=== PATIENT | male | born 1945 | race Caucasian/White ===

== ENCOUNTER 2020-11-10 12:16 | Inpatient (IN) | payer MEDICARE, MEDICAID, SELFPAY ==
[~2020-11-10] VITALS: Ht 175.3 cm; Wt 81.2 kg
[2020-11-10 12:16] VITALS: BP 131/65
[~2020-11-10 12:16] MED LIST: ALBU-136 IH; LEVO500T6 PO; PRED20TA5 PO; PRON INH
--- NOTE | 2020-11-10 12:16 | NUR ---
PT W/C ASSISTED FROM CAR. BIB FAMILY AND PLACED IN BED 10.
--- NOTE | 2020-11-10 12:17 | NUR ---
ERMD at bedside
[2020-11-10] MEDS ORDERED: predniSONE 20 MG TAB PO ONE (12:20)
[2020-11-10] MEDS ORDERED: ALBUTEROL SULFATE/IPRATROPIU 3 ML SOL IH ONE (12:20)
[2020-11-10] MEDS ORDERED: ALBUTEROL 0.083% 2.5 MG/3 ML NEBU INH ONE (12:20)
--- NOTE | 2020-11-10 12:20 | NUR ---
RT CALLED FOR BREATHING TX.
--- NOTE | 2020-11-10 12:23 | NUR ---
RT AT BEDSIDE PROVIDING BREATHING TREATMENT
--- NOTE | 2020-11-10 12:24 | NUR ---
RT AT BEDSIDE FOR BREATHING INTERVENTION.
--- NOTE | 2020-11-10 12:25 | NUR ---
75 Y/O M BIB SELF WITH A C/C OF SHORTNESS OF BREATH X 3 DAYS. PT STATES THAT HIS SOB WORSEN THIS MORNING. PT STATES HE TOOK HIS PRESCRIBED MEDICATION, ADVAIR, PROAIR INHALER, AND ALLERGY MEDICATION AT 12PM WITH RELIEF. PT PRESENTED TO ER WITH O2 SATURATION 85%. O2 SATURATION 94% AFTER PT PT PLACED ON NASAL CANNULA @ 3L/MIN. PT DENIES FEVER, NAUSEA, VOMITING, CHEST PAIN, DIZZINESS. ORAL TEMP 97.7. LUNG SOUNDS DIMINISHED BILATERAL BASES. RESEARCH PROGRAM COORDINATOR, BP CUFF, PULSE OX IN PLACE. BED LOCKED IN LOWEST POSITION, SIDE RAILS X 1, CALL LIGHT IN REACH HX: ASTHMA MEDS: ADVAIR DISKUS, PROAIR INHALER, ALLERGY MEDICATION UNKNOWN NKA
--- NOTE | 2020-11-10 12:37 | NUR ---
RAD AT BEDSIDE
--- NOTE | 2020-11-10 12:50 | NUR ---
DR. PRIEST EXAMINING PT AT BEDSIDE
--- NOTE | 2020-11-10 13:15 | NUR ---
STATUS UPDATE PROVIDED TO ROGERIO () VIA PHONE
--- NOTE | 2020-11-10 13:30 | NUR ---
chris/novel swabs collected and taken to lab
--- NOTE | 2020-11-10 14:26 | NUR ---
LAB CALLED TO INFORM THAT PT IS COVID+
--- NOTE | 2020-11-10 14:28 | NUR ---
SELWYND MADE AWARE OF POSITIVE COVID TEST
--- NOTE | 2020-11-10 14:46 | NUR ---
ERMD MADE AWARE OF PT O2 SATURATION OF 88% ON ROOM AIR AND CONFIRMED TO CONTINUE DISCHARGE PLAN
--- NOTE | 2020-11-10 14:53 | NUR ---
consent obtained for Bamlanivimab transfusion
[2020-11-10] MEDS ORDERED: bamlanivimab 700 MG (1 VIAL) in NACL 0.9% @ 270 MLS/HR(270ml) IV SCH (15:00)
[2020-11-10] MEDS ORDERED: AZITHROMYCIN 500 MG in DEXTROSE 5% 250 ML IV ONE (15:50)
[2020-11-10] MEDS ORDERED: DEXAMETHASONE 10 MG/ML VIAL IVP ONE (15:50)
[2020-11-10] MEDS ORDERED: FLUT1DSK IH (15:52)
[2020-11-10] MEDS ORDERED: PRED5TAB7 PO (15:53)
--- NOTE | 2020-11-10 15:57 | NUR ---
GAVE UPDATE TO SENIA () OF PT.
[2020-11-10] MEDS ORDERED: cefTRIAXone 1,000 MG VIAL ONE (16:00)
--- NOTE | 2020-11-10 16:05 | NUR ---
LAB AT BEDSIDE
[2020-11-10 16:25] LABS: BASOPHILS % (AUTO) 0.4 % (0.0-2.0); HEMATOCRIT 43.6 % (36-52); HEMOGLOBIN 14.7 g/dL (12.0-18.0); LYMPHOCYTES # (AUTO) 0.4 K/uL (2.0-11.5); LYMPHOCYTES % (AUTO) 3.4 % (20.5-51.1); MEAN CORPUSCULAR HEMOGLOBIN 32 pg (27-31); MEAN CORPUSCULAR HGB CONC 34 g/dL (33-37); MEAN CORPUSCULAR VOLUME 94.5 fL (80-94); MONOCYTES # (AUTO) 0.5 K/uL (0.8-1.0); MONOCYTES % (AUTO) 4.9 % (1.7-9.3); NEUTROPHILS # (AUTO) 9.9 K/uL (1.8-7.7); NEUTROPHILS % (AUTO) 91.3 % (42.2-75.2); PLATELET COUNT (AUTO) 286 K/uL (140-450); RED BLOOD CELL COUNT(AUTO) 4.61 MIL/uL (4.20-6.10); WHITE BLOOD COUNT (AUTO) 10.8 K/uL (4.8-10.8)
[2020-11-10] MEDS ORDERED: AZITHROMYCIN 500 MG INJ VIAL IV ONE (16:30)
[2020-11-10 16:43] LABS: ALBUMIN 3.1 g/dL (3.4-5.0); ANION GAP 14.2 (8-16); ASPARTATE AMINOTRANSFERASE 50 U/L (15-37); CARBON DIOXIDE 25.9 mmol/L (21-32); CHLORIDE 103 mmol/L (98-107); CREATININE 1.3 mg/dL (0.6-1.3); GLUCOSE 164 mg/dL (74-106); POTASSIUM 4.1 mmol/L (3.5-5.1); SODIUM SERUM 139 mmol/L (136-145); TOTAL BILIRUBIN 0.6 mg/dL (0.0-1.0); UREA NITROGEN, BLOOD 24 mg/dL (7-18)
[2020-11-10 17:07] LABS: C-REACTIVE PROTEIN QUANT 9.8 mg/dL (0.0-0.9)
--- NOTE | 2020-11-10 17:10 | NUR ---
PT RESTING AT THIS TIME AND REQUESTED TO HAVE LIGHTS TURNED OFF. EQUAL CHEST RISE AND FALL. TANK CALIBRATOR IN PLACE. BED LOCKED IN LOWEST POSITION, SIDE RAILS X2, CALL LIGHT IN REACH
[2020-11-10 17:13] LABS: LACTATE DEHYDROGENASE 431 U/L (85-227)
--- NOTE | 2020-11-10 18:00 | NUR ---
PT ASSISTED WITH REPOSITIONING IN BED. PT PROVIDED WITH SCALLOP BINDER FOR PHONE. ALL PT NEEDS MET AT THIS TIME. TEAR DOWN WORKER IN PLACE. EQUAL CHEST RISE AND FALL. BED LOCKED IN LOWEST POSITION, SIDE RAILS X 2, CALL LIGHT IN REACH
--- NOTE | 2020-11-10 18:53 | NUR ---
PT PROVIDED WITH DINNER MEAL TRAY. ALL PT NEEDS MET. BED LOCKED IN LOWEST POSITION, SIDE RAILS X 1, CALL LIGHT IN REACH
--- NOTE | 2020-11-10 19:26 | NUR ---
PT COMPLETED 80% OF DINNER MEAL TRAY. MEAL TRAY DISCARDED. ALL PT NEEDS MET AT THIS TIME. MACHINE COMPOSITOR IN PLACE. BED LOCKED IN LOWEST POSITION, SIDE RAILS X2, CALL LIGHT IN REACH
--- NOTE | 2020-11-10 19:33 | NUR ---
gave report to KEISHA Alvarez. Transfer of care at this time.
--- NOTE | 2020-11-10 19:34 | NUR ---
RECEIVED REPORT FROM BILL VLADES FOR CONTINUITY OF CARE.
--- NOTE | 2020-11-10 20:02 | NUR ---
PT LAYING IN BED IN NO ACUTE DISTRESS NOTED. BREATHING EVEN AND UNLABORED. ON NC AT 3 L OF OXYGEN SPO2 AT 90%. REPORTS COMING IN FOR ASTHMA EXACERBATION. ON CONTINUES BEDSIDE MONITORING. DENIES HAVING ANY PAIN OR DISCOMFORT.
--- NOTE | 2020-11-10 20:10 | NUR ---
CRITICAL LAB---LACTIC ACID 3.2. NOTIFIED DR. BECERRIL GAVE NO NEW ORDERS AT THIS TIME, STATES "OKAY LET ME TAKE A LOOK AT THE CHART".
[2020-11-10] MEDS ORDERED: ZOLPIDEM 5 MG TAB PO PRN (20:15)
[2020-11-10] MEDS ORDERED: DOCUSATE SODIUM 100 MG GELCAP PO PRN (20:15)
[2020-11-10] MEDS ORDERED: POTASSIUM CHLORIDE 40 MEQ, LIDOCAINE MPF 1% 25 MG in NACL 0.9% 250 ML IV PRN (20:15)
[2020-11-10] MEDS ORDERED: ACETAMINOPHEN 325 MG TAB PO PRN (20:15)
[2020-11-10] MEDS ORDERED: HYDROcodone/APAP 7.5/325 MG 1 TAB PO PRN (20:15)
[2020-11-10] MEDS ORDERED: ONDANSETRON 4 MG/2 ML VIAL IM/IVP PRN (20:15)
[2020-11-10] MEDS ORDERED: ALBUTEROL HFA MDI 90 MCG/ACTUATION 8 GM INH PRN (20:20)
[2020-11-10] MEDS: NACL 0.9% 1,000 ML IV SCH (20:54)
--- NOTE | 2020-11-10 20:58 | NUR ---
CANDI PCR COLLECTED AND GIVEN TO HVAC JOURNEYMAN.
[2020-11-10 21:01] LABS: CHOL/HDL RATIO 3.7 (1-4.5); FREE T4 (FREE THYROXINE) 1.87 ng/dL (0.76-1.46); MAGNESIUM 2.6 mg/dL (1.8-2.4); PHOSPHORUS 2.7 mg/dL (2.5-4.9); THYROID STIMULATING HORMONE 0.52 uIU/mL (0.34-3.74)
--- NOTE | 2020-11-10 22:02 | NUR ---
UA SAMPLE COLLECTED AND SENT TO LAB.
[2020-11-10 22:26] LABS: APPEARANCE,URINE CLEAR (CLEAR); BILIRUBIN,URINE NEGATIVE (NEGATIVE); BLOOD, URINE TRACE-L (NEGATIVE); COLOR,URINE YELLOW (YELLOW); LEUKOCYTE ESTERASE ,URINE NEGATIVE (NEGATIVE); NITRITE, URINE NEGATIVE (NEGATIVE); UGLUCOSE TRACE (NEGATIVE)
[2020-11-10 22:43] LABS: RBC,URINE 0-5 /HPF (0-5); WBC,URINE 0-5 /HPF (0-5)
[2020-11-10 22:47] LABS: BARBITURATE, URINE NEGATIVE ng/ml (NEG <=200); BENZODIAZEPINE, URINE NEGATIVE ng/mL (NEG <=200); CANNABINOID, URINE NEGATIVE ng/mL (NEG <=50); COCAINE, URINE NEGATIVE ng/mL (NEG <=300); OPIATE, URINE NEGATIVE ng/mL (NEG <=2000); PHENCYCLIDINE SCREEN,URINE NEGATIVE ng/mL (NEG <=25)
--- NOTE | 2020-11-10 23:59 | NUR ---
PROVIDED UPDATE STATUS TO PT'S ROGERIO LOPEZ ANSWERED ALL QUESTIONS. SHE PROVIDED 2ND CONTACT INFO: .
--- NOTE | 2020-11-11 00:17 | NUR ---
PT LAYING IN BED IN NO ACUTE DISTRESS NOTED BREATHING EVEN AND UNLABORED EVIDENCE BY RISE AND FALL OF CHEST WALL. VSS, ON 5 L OF OXYGEN VIA NC. REMAINS ON CONTINUES MONITORING. EMPTIED 400 ML OF DARK YELLOW URINE FROM URINAL AT THIS TIME. BED LOCKED AND IN LOWEST POSITION. SIDE RAIL UP X1.
--- NOTE | 2020-11-11 01:27 | NUR ---
PT LAYING IN BED ON SEMI-FOWLERS POSITION IN NO ACUTE DISTRESS NOTED. BREATHING EVEN AND UNLABORED. ON NC AT 5 L OF OXYGEN SPO2 AT 98%. IVF RUNNING AT 60 ML/HR OF 0.9% NS. VSS, BED LOCKED AND IN LOWEST POSITION. SIDE RAILS UP X 1 FOR SAFETY. CALL LIGHT WITHIN REACH AND ALL NEEDS WERE MEET PRIOR TO EXIT.
--- NOTE | 2020-11-11 03:14 | NUR ---
PT LAYING IN BED ON SEMI-FOWLERS POSITION IN NO ACUTE DISTRESS NOTED. BREATHING EVEN AND UNLABORED. ON NC AT 5 L OF OXYGEN SPO2 AT 98%. VSS, BED LOCKED AND IN LOWEST POSITION. SIDE RAILS UP X 1 FOR SAFETY. CALL LIGHT WITHIN REACH AND ALL NEEDS WERE MEET PRIOR TO EXIT.
--- NOTE | 2020-11-11 06:59 | NUR ---
PATIENT HAS BEEN SCREENED AND CATEGORIZED MODERATE NUTRITION RISK. PATIENT WILL BE SEEN WITHIN 3-5 DAYS OF ADMISSION. 11/13/20-11/15/20 CINDY JAIMES MS, RDN
--- NOTE | 2020-11-11 07:18 | NUR ---
REPORT GIVEN TO YAZMIN VALDES FOR CONTINUITY OF CARE.
[2020-11-11 07:55] LABS: BASOPHILS % (AUTO) 0.4 % (0.0-2.0); HEMATOCRIT 40.9 % (36-52); HEMOGLOBIN 13.6 g/dL (12.0-18.0); LYMPHOCYTES # (AUTO) 0.6 K/uL (2.0-11.5); LYMPHOCYTES % (AUTO) 4.8 % (20.5-51.1); MEAN CORPUSCULAR HEMOGLOBIN 31 pg (27-31); MEAN CORPUSCULAR HGB CONC 33 g/dL (33-37); MEAN CORPUSCULAR VOLUME 94.4 fL (80-94); MONOCYTES # (AUTO) 0.7 K/uL (0.8-1.0); MONOCYTES % (AUTO) 5.9 % (1.7-9.3); NEUTROPHILS # (AUTO) 10.2 K/uL (1.8-7.7); NEUTROPHILS % (AUTO) 88.9 % (42.2-75.2); PLATELET COUNT (AUTO) 262 K/uL (140-450); RED BLOOD CELL COUNT(AUTO) 4.33 MIL/uL (4.20-6.10); WHITE BLOOD COUNT (AUTO) 11.5 K/uL (4.8-10.8)
--- NOTE | 2020-11-11 08:19 | NUR ---
Performed KIAN TRIPLETT, walked to lab.
--- NOTE | 2020-11-11 08:34 | NUR ---
Patient will be admitted to care of DR BECERRIL. Admited to TELE. Will go to [id number]. Belongings list completed. Report to DEVIN.
[2020-11-11] MEDS ORDERED: AZITHROMYCIN 250 MG TAB PO SCH (09:00)
[2020-11-11] MEDS: COMMUNICATION ORDER MC SCH (09:00)
[2020-11-11] MEDS: PANTOPRAZOLE 40 MG TABEC PO SCH (09:15)
[2020-11-11] MEDS: ASCORBIC ACID 500 MG TAB PO SCH (09:16)
[2020-11-11] MEDS: ZINC SULF 220 MG CAP PO SCH (09:16)
[2020-11-11 09:21] LABS: ALBUMIN 2.6 g/dL (3.4-5.0); ANION GAP 17.2 (8-16); ASPARTATE AMINOTRANSFERASE 38 U/L (15-37); CHLORIDE 106 mmol/L (98-107); CREATININE 1.2 mg/dL (0.6-1.3); GLUCOSE 147 mg/dL (74-106); POTASSIUM 4.2 mmol/L (3.5-5.1); SODIUM SERUM 143 mmol/L (136-145); TOTAL BILIRUBIN 0.4 mg/dL (0.0-1.0); UREA NITROGEN, BLOOD 23 mg/dL (7-18)
[2020-11-11 09:25] VITALS: BP 108/78
--- NOTE | 2020-11-11 09:25 | NUR ---
RECIEVED REPORT FROM ED NURSE. PT RESTING IN BED. ABLE TO MAKE NEEDS KNOWN. RESPIRATIONS EVEN AND UNLABORED WITH NO SOB OR RESPIRATORY DISTRESS. SKIN WARM AND DRY TO TOUCH. IV SITE IN RAC 20G IS CLEAN, DRY, AND INTACT. MRSA SWAB COLLECTED AND SENT. SAFETY MEASURES IN PLACE. WILL CONTINUE TO MONITOR
[2020-11-11 12:00] VITALS: BP 109/59
--- NOTE | 2020-11-11 13:00 | NUR ---
ADMINISTERED SCHED MED PRESCRIBED PER MD ORDER. MEDICATION EDUCATION PERFORMED. PT VERBALIZED UNDERSTANDING. SAFETY MEASURES IN PLACE. WILL CONTINUE TO MONITOR
[2020-11-11] MEDS ORDERED: remdesivir CLINICAL MONITORING 1 EA MISC MC PRN (13:15)
[2020-11-11] MEDS: NACL 0.9% 1,000 ML IV SCH (13:18)
--- NOTE | 2020-11-11 15:15 | NUR ---
HOURLY ROUNDING. PT RESTING IN BED. ABLE TO MAKE NEEDS KNOWN. RESPIRATIONS EVEN AND UNLABORED WITH NO SOB OR RESPIRATORY DISTRESS. SKIN WARM AND DRY TO TOUCH. SAFETY MEASURES IN PLACE. WILL CONTINUE TO MONITOR
[2020-11-11 16:00] VITALS: BP 110/72
--- NOTE | 2020-11-11 16:59 | NUR ---
ADMINISTERED SCHED MED PRESCRIBED PER MD ORDER. MEDICATION EDUCATION PERFORMED. PT VERBALIZED UNDERSTANDING. SAFETY MEASURES IN PLACE. WILL CONTINUE TO MONITOR
[2020-11-11] MEDS ORDERED: REMDESIVIR (EUA) 200 MG in NACL 0.9% 100 ML IV SCH (17:00)
--- NOTE | 2020-11-11 17:29 | NUR ---
ADMINISTERED SCHED MED PRESCRIBED PER MD ORDER. MEDICATION EDUCATION PERFORMED. PT VERBALIZED UNDERSTANDING. SAFETY MEASURES IN PLACE. WILL CONTINUE TO MONITOR
--- NOTE | 2020-11-11 19:25 | NUR ---
ENDORSED TO NIGHTSHIFT FOR CONTINUITY OF CARE. PT IS STABLE
[2020-11-11 20:00] VITALS: BP 115/68
[2020-11-12] VITALS: BP 117/69
[2020-11-12 04:00] VITALS: BP 114/66
--- NOTE | 2020-11-12 07:30 | NUR ---
RECEIVED REPORT FROM NIGHTSHIFT NURSE. PT RESTING IN BED. ABLE TO MAKE NEEDS KNOWN. RESPIRATIONS EVEN AND UNLABORED WITH NO SOB OR RESPIRATORY DISTRESS. IV SITE IN RAC 20G IS CLEAN, DRY, AND INTACT. SKIN WARM AND DRY TO TOUCH. SAFETY MEASURES IN PLACE. WILL CONTINUE TO MONITOR
[2020-11-12 08:00] VITALS: BP 110/57
[2020-11-12 08:06] LABS: T4 (THYROXINE) 12.2 ug/dL (4.5-12.0)
[2020-11-12 08:22] LABS: BASOPHILS % (AUTO) 0.1 % (0.0-2.0); HEMATOCRIT 41.2 % (36-52); HEMOGLOBIN 13.7 g/dL (12.0-18.0); LYMPHOCYTES # (AUTO) 0.7 K/uL (2.0-11.5); MEAN CORPUSCULAR HEMOGLOBIN 32 pg (27-31); MEAN CORPUSCULAR HGB CONC 33 g/dL (33-37); MEAN CORPUSCULAR VOLUME 94.6 fL (80-94); MONOCYTES # (AUTO) 0.8 K/uL (0.8-1.0); MONOCYTES % (AUTO) 5.5 % (1.7-9.3); NEUTROPHILS # (AUTO) 13.1 K/uL (1.8-7.7); PLATELET COUNT (AUTO) 261 K/uL (140-450); RED BLOOD CELL COUNT(AUTO) 4.35 MIL/uL (4.20-6.10); RED CELL DISTRIBUTION WIDTH 12.7 % (11.6-13.7); WHITE BLOOD COUNT (AUTO) 14.6 K/uL (4.8-10.8)
[2020-11-12] MEDS: COMMUNICATION ORDER MC SCH (09:00)
[2020-11-12 09:16] LABS: ALBUMIN 2.5 g/dL (3.4-5.0); ANION GAP 15.6 (8-16); ASPARTATE AMINOTRANSFERASE 43 U/L (15-37); CARBON DIOXIDE 24.2 mmol/L (21-32); CHLORIDE 109 mmol/L (98-107); CREATININE 1.3 mg/dL (0.6-1.3); GLUCOSE 129 mg/dL (74-106); POTASSIUM 4.8 mmol/L (3.5-5.1); SODIUM SERUM 144 mmol/L (136-145); TOTAL BILIRUBIN 0.4 mg/dL (0.0-1.0); UREA NITROGEN, BLOOD 26 mg/dL (7-18)
[2020-11-12] MEDS: ZINC SULF 220 MG CAP PO SCH (09:44)
[2020-11-12] MEDS: ASCORBIC ACID 500 MG TAB PO SCH (09:44)
[2020-11-12] MEDS: NACL 0.9% 1,000 ML IV SCH ×2 (09:45→22:15)
[2020-11-12] MEDS: PANTOPRAZOLE 40 MG TABEC PO SCH (09:45)
--- NOTE | 2020-11-12 09:55 | NUR ---
ADMINISTERED SCHED MED PRESCRIBED PER MD ORDER. PT TOLERATED WELL. MEDICATION EDUCATION. PT VERBALIZED UNDERSTANDING. SAFETY MEASURES IN PLACE. WILL CONTINUE TO MONITOR
[2020-11-12 10:12] LABS: LYMPHOCYTES % (AUTO) 4.7 % (20.5-51.1); NEUTROPHILS % (AUTO) 89.7 % (42.2-75.2)
--- NOTE | 2020-11-12 11:50 | NUR ---
DC PLANNIN YRS OLD MALE PATIENT WAS ADMITTED FROM HOME WITH A DX OF COVID, PNA AND HYPOXIA. RAPID COVID TEST POSITIVE PCR IS PENDING. ON 4L/NC SATING 93. STARTED ON COVID TREATMENT REMDESEVIR IV, ROCEPHIN AND AZITHROMYCIN AND DECADRON. CONSULTED WITH JUANCARLOS AND NICOLE. DC PLAN TO GO HOME WHEN STABLE CM TO FOLLOW Addendum: 11/13/20 at 1217 by Stephie Gamboa CM DC STARCH AND PROSIZE MIXER: RECEIVED ORDER FOR HOME O2. WORKING ON ORDER WILL FOLLOW UP Addendum: 11/13/20 at 1242 by Stephie Gamboa CM DC STARCH AND PROSIZE MIXER: FAXED ORDER TO [facility]. WILL FOLLOW UP WITH HELLEN [phone] Addendum: 11/13/20 at 1312 by Stephie Gamboa CM ARLET HARRIS: SPOKE TO HELLEN FROM [facility] [phone] THEY RECEIVED ORDER. THEY WILL BE WORKING ON IT BUT SHE SAID THEY ARE VERY BUSY AND TRYING TO CATCH UP FROM THE WEEKEND. SOMEONE WILL CONTACTED ME IN ABOUT HALF AN HOUR. Addendum: 11/13/20 at 1357 by Stephie Gamboa CM ARLET HARRIS: RECEIVED A CALL FROM MARIANO AT [facility]. SHE STATED THAT PATIENTS INSURANCE IS CAPITATED AND THEY ARE NOT CONTRACTED SHE ADVISED THAT I SEND IT TO [facility] Addendum: 11/13/20 at 1520 by Stephie Gamboa CM ARLET HARRIS: FOLLOWED UP WITH TERE NAVARRO [facility] THEY CAN NOT PROVIDE HOME 02 FOR THIS PATIENT. Addendum: 11/13/20 at 1540 by Stephie Carboneeda CM ARLET HARRIS: SPOKE TO NIMA NAVARRO [facility] [phone] THEY ARE CONTRACTED WITH PATIENTS INSURANCE AND IPA. Addendum: 11/13/20 at 1543 by Stephie Carboneeda CM ARLET HARRIS: [facility] NEEDS AUTH FOR HOME O2, HOWEVER INSURANCE IS NOT OPEN TODAY DUE TO HOLIDAY. Addendum: 11/14/20 at 1108 by Stephie Gamboa CM ARLET HARRIS: FOLLOWED UP WITH [facility] [phone] EXT [phone]. THEY ARE REQUESTING AN AUTH FORM TO BE FILLED UP AND FAXED TO THEM. FILLED OUT AND FAXED WILL FOLLOW UP Addendum: 11/14/20 at 1236 by Stephie Gamboa CM ARLET HARRIS: SPOKE TO ASHU PADILLA [phone] [phone] FROM [facility] SHE IS GOING TO CONTACT [facility] TO PROVIDE THEM AUTH Addendum: 11/14/20 at 1510 by Stephie Gamboa CM ARLET HARRIS: FOLLOWED UP WITH [facility] AND SPOKE TO NAN THEY STILL HAVE NOT RECEIVED AUTH Addendum: 11/14/20 at 1527 by Stephie Gamboa CM ARLET HARRIS: SPOKE TO ASHU PADILLA [phone] EXT [phone] SHE ASKED THAT Celestino DIANAX THE ORDER TO [facility]. Addendum: 11/14/20 at 1542 by Stephie Carboneeda CM ARLET HARRIS: SPOKE TO VIN AT [facility] THEY CAN NOT PROVIDE HOME O2 BECAUSE THEY ARE ALL OUT. Addendum: 11/14/20 at 1550 by Stephie Gamboa CM ARLET HARRIS: SPOKE TO AUSTEN AT [facility] [phone] EXT [phone] SHE TRIED CALL ASHU PADILLA TO RECEIVE AUTH NO ANSWER. I CALLED VALERIE WELL MULTIPLE TIMES NO ANSWER OR CALL BACK Addendum: 11/14/20 at 1607 by Stephie Gamboa CM ARLET HARRIS: I WAS FINALLY ABLE TO GET A HOLD OF ASHU PADILLA SHE WILL BE CALLING [facility] TO PROVIDE THEM AUTH. Addendum: 11/15/20 at 0901 by Stephie Gamboa CM ARLET HARRIS: SPOKE TO PATIENTS SENIA TO DISCUSS THE HOME O2, SHE SAID SHE RECEIVED A PHONE CALL FROM [facility]. SHE WILL BE CONTACTING THEM BACK. I LET HER KNOW THEY WERE PROBABLY CONTACTING HER FOR DELIVERY. Addendum: 11/15/20 at 0918 by Stephie Gamboa CM ARLET HARRIS: RECEIVED A PHONE CALL FROM RITA NAVARRO [facility] THEY CAN NOT PROVIDE PATIENT WITH OXYGEN BECAUSE [employer] IS DELEGATED TO FOR PAYMENT AND THEY ARE NOT CONTRACTED. Addendum: 11/15/20 at 1245 by Stephie Gamboa CM ARLET HARRIS: BEEN TRYING TO CONTACT SOMEONE FROM [facility] ALL MORNING. BEEN TRANSFERRED AROUND TO MULTIPLE PEOPLE. THEY ARE UNABLE TO FIND AN ASSIGNED PRINCIPAL IOS DEVELOPER FOR THIS PATIENT. SPOKE TO [employer]BER [employer] AT [facility] [phone] CALL REF # [id number] Addendum: 11/15/20 at 1404 by Stephie Gamboa CM ARLET HARRIS: I WAS FINALLY ABLE TO GET A HOLD OF A MEMBER AT [facility]. THEY ARE ONLY CONTRACTED WITH [facility], HOWEVER [facility] STATED THAT THEY CAN NOT PROVIDE PATIENT WITH HOME O2. Addendum: 11/15/20 at 1607 by Stephie Gamboa CM DC STARCH AND PROSIZE MIXER: [facility] IS ONLY PROVIDING HOME 02 FOR [facility]IE[place] AND PROMRALPH PATIENTS. Addendum: 11/20/20 at 1550 by Marina Cornejo RN DC PLANNING: PT IS STILL ON HIGH FLOW O2 40L/NC AND NON REBREATHER SATING 91%, WBC 20.3 , ID AND PULMO FOLLOWING. CM TO FOLLOW
[2020-11-12 12:00] VITALS: BP 101/65
--- NOTE | 2020-11-12 13:30 | NUR ---
PT ASLEEP IN BED. RESPONSIVE TO VERBAL AND TACTILE STIMULI. RESPIRATIONS EVEN AND UNLABORED WITH NO SOB OR RESPIRATORY DISTRESS. SKIN WARM AND DRY TO TOUCH. SAFETY MEASURES IN PLACE. WILL CONTINUE TO MONITOR
--- NOTE | 2020-11-12 15:26 | NUR ---
PT SIGNED CONSENT FOR PLASMA. PLACED IN PT CHART. CALLED BLOOD BANK AND THEY DO NOT HAVE ANY DETHAWED FOR PT BLOOD TYPE. PER THE BLOOD BANK, THEY WILL CALL WHEN THE BLOOD IS READY. AWARE. SAFETY MEASURES IN PLACE. WILL CONTINUE TO MONITOR
[2020-11-12 16:00] VITALS: BP 157/58
[2020-11-12] MEDS: REMDESIVIR (EUA) 100 MG in NACL 0.9% 100 ML IV SCH (17:00)
--- NOTE | 2020-11-12 17:06 | NUR ---
ADMINISTERED SCHED MED PRESCRIBED PER MD ORDER. PT TOLERATED WELL. MEDICATION EDUCATION. PT VERBALIZED UNDERSTANDING. SAFETY MEASURES IN PLACE. WILL CONTINUE TO MONITOR
--- NOTE | 2020-11-12 18:02 | NUR ---
ADMINISTERED SCHED MED PRESCRIBED PER MD ORDER. PT TOLERATED WELL. MEDICATION EDUCATION. PT VERBALIZED UNDERSTANDING. SAFETY MEASURES IN PLACE. WILL CONTINUE TO MONITOR
--- NOTE | 2020-11-12 19:10 | NUR ---
RECEIVED BEDSIDE REPORT FROM DAY SHIFT NURSE. PATIENT AWAKE, RESPIRATION EVEN UNLABORED ON 4L NC O2. SATING 90% NO DISTRESS NOTED. SKIN IS WARM AND DRY. IV PATENT AND INTACT PLAN OF CARE WAS DISCUSSED. ALL SAFETY MEASURES IN PLACE. BED IS AT LOW POSITION. CALL LIGHT WITHIN REACH. WILL CONTINUE TO MONITOR
--- NOTE | 2020-11-12 19:25 | NUR ---
ENDORSED TO NIGHTSHIFT FOR CONTINUITY OF CARE. PT IS STABLE
[2020-11-12 20:00] VITALS: BP 97/44
--- NOTE | 2020-11-12 20:47 | NUR ---
ALL SCHEDULED MEDS WERE GIVEN PER ORDER. NO ASE NOTED. WILL CONTINUE TO MONITOR
[2020-11-13] VITALS: BP 100/49
--- NOTE | 2020-11-13 00:10 | NUR ---
VITALS WERE TAKEN
--- NOTE | 2020-11-13 01:46 | NUR ---
MADE ROUNDS. PATIENT SLEEPING RESPIRATION EVEN UNLABORED ON 4L NC NO DISTRESS NOTED. WILL CONTINUE TO MONITOR
--- NOTE | 2020-11-13 02:20 | NUR ---
MADE ROUNDS. PATIENT SLEEPING RESPIRATION EVEN UNLABORED ON 4L NC NO DISTRESS NOTED. WILL CONTINUE TO MONITOR
[2020-11-13 04:00] VITALS: BP 103/55
--- NOTE | 2020-11-13 04:45 | NUR ---
MORNING CARE PROVIDED
--- NOTE | 2020-11-13 07:23 | NUR ---
ENDORSED PATIENT TO DAY SHIFT NURSE FOR CONTINUITY OF CARE.
[2020-11-13 08:00] VITALS: BP_SYST 101; BP_SYST 108; BP_DIAS 39; BP_DIAS 53
--- NOTE | 2020-11-13 08:00 | NUR ---
RECEIVED REPORT FROM MANAGER OF PURCHASING FOR CONTINUITY OF CARE. PATIENT ALERT AWAKE ORIENTED X4, NOT IN ANY DISTRESS NOTED. ON 4L NC SATURATION 94%. IV ACCIDENTALLY REMOVED, RE INSERT A NEW IV ON HIS RIGHT HAND G.22. IVF ON GOING AND INFUSING WELL. ON MONITOR SHOWS SR. WILL CONTINUE TO MONITOR.
[2020-11-13 08:36] LABS: HEMATOCRIT 44.4 % (36-52); HEMOGLOBIN 14.8 g/dL (12.0-18.0); LYMPHOCYTES # (AUTO) 1.2 K/uL (2.0-11.5); LYMPHOCYTES % (AUTO) 7.3 % (20.5-51.1); MEAN CORPUSCULAR HEMOGLOBIN 32 pg (27-31); MEAN CORPUSCULAR HGB CONC 33 g/dL (33-37); MEAN CORPUSCULAR VOLUME 94.9 fL (80-94); MONOCYTES # (AUTO) 0.7 K/uL (0.8-1.0); MONOCYTES % (AUTO) 4.6 % (1.7-9.3); NEUTROPHILS % (AUTO) 88.1 % (42.2-75.2); PLATELET COUNT (AUTO) 314 K/uL (140-450); RED BLOOD CELL COUNT(AUTO) 4.68 MIL/uL (4.20-6.10); RED CELL DISTRIBUTION WIDTH 13.1 % (11.6-13.7); WHITE BLOOD COUNT (AUTO) 15.9 K/uL (4.8-10.8)
[2020-11-13] MEDS: PANTOPRAZOLE 40 MG TABEC PO SCH (08:46)
[2020-11-13] MEDS: ASCORBIC ACID 500 MG TAB PO SCH (08:46)
[2020-11-13] MEDS: ZINC SULF 220 MG CAP PO SCH (08:46)
[2020-11-13 08:48] LABS: ALBUMIN 2.6 g/dL (3.4-5.0); ASPARTATE AMINOTRANSFERASE 37 U/L (15-37); CARBON DIOXIDE 22.3 mmol/L (21-32); CHLORIDE 107 mmol/L (98-107); CREATININE 1.3 mg/dL (0.6-1.3); GLUCOSE 130 mg/dL (74-106); POTASSIUM 4.3 mmol/L (3.5-5.1); SODIUM SERUM 142 mmol/L (136-145); TOTAL BILIRUBIN 0.4 mg/dL (0.0-1.0); UREA NITROGEN, BLOOD 26 mg/dL (7-18)
[2020-11-13] MEDS: COMMUNICATION ORDER MC SCH (09:04)
--- NOTE | 2020-11-13 09:30 | NUR ---
ALL DUE MEDICATION GIVEN AND TOLERATED WELL. PT HERE FOR PATIENT. WILL CONTINUE TO MONITOR.
[2020-11-13 12:00] VITALS: BP 112/68
--- NOTE | 2020-11-13 13:39 | NUR ---
SOCIAL WORK NOTE: Patient's Orientation Unable To Assess Information Provided By SENIA RICO - SIGNIFICANT OTHER Comments SW WAS UNABLE TO MEET PATIENT AT BEDSIDE. SW COMPLETED ASSESSMENT WITH PATIENT'S SIGNIFICANT OTHER. Electron Microscopist, Realtionship and Phone Number SENIA RICO SIGNIFICANT OTHER [phone] Healthcare Power of Bleacher Pulp No Does Patient Have a POLST No Identifying Problems No Social Work Triggers Is A Social Work Consult Needed No Mandate Report Filed No Explanation Of Identifying Problems PATIENT IS A 75-YEAR-OLD MALE ADMITTED FOR COVID AND PNEUMONIA. PATIENT HAS PMHX OF ASTHMA. Admitted From Home Pre-Admission Level Of Functioning Status Independent/Ambulatory Prior Resources/Services Used In Last 12 Months No Prior Resources Used Prior DME No Prior DME Used Dialysis Comments N/A Living Situation Lives With Family Mobile Home Patient Had Caregiver No Home Support No Caregiver Issues Financial Issues No Known Financial Issue Referral To The Financial Counselor Needed No Factors/Needs No D/C Needs Identified Pt/Rep Participated In Discharge Plan Yes Patient/Family Agress With Discharge Plan Yes Discharge Plan Comments TENTATIVE DISCHARGE PLAN IS FOR PATIENT TO RETURN HOME. DC Plan Status Initiated
[2020-11-13] MEDS: NACL 0.9% 1,000 ML IV SCH (14:55)
[2020-11-13 16:00] VITALS: BP 114/58
[2020-11-13] MEDS: REMDESIVIR (EUA) 100 MG in NACL 0.9% 100 ML IV SCH (17:25)
--- NOTE | 2020-11-13 18:52 | NUR ---
PATIENT RESTING IN BED, DENIES PAIN TOLERATES 4L NC.
--- NOTE | 2020-11-13 19:10 | NUR ---
RECEIVED BEDSIDE REPORT FROM DAY SHIFT NURSE. PATIENT AWAKE, RESPIRATION EVEN UNLABORED ON 4L NC O2. SATING 90-92% NO DISTRESS NOTED. SKIN IS WARM AND DRY. IV PATENT AND INTACT PLAN OF CARE WAS DISCUSSED. ALL SAFETY MEASURES IN PLACE. BED IS AT LOW POSITION. CALL LIGHT WITHIN REACH. WILL CONTINUE TO MONITOR
[2020-11-13 20:00] VITALS: BP 103/53
--- NOTE | 2020-11-13 20:35 | NUR ---
ALL SCHEDULED MEDS WERE GIVEN PER ORDER. NO ASE NOTED. WILL CONTINUE TO MONITOR
--- NOTE | 2020-11-13 22:30 | NUR ---
ABLE TO GET TELEPHONE CONSENT FROM MD REGARDING CT ANGIO WITH CONTRAST. PER MD ITS OKAY TO DO 2 RN CO-SIGN.
--- NOTE | 2020-11-13 23:00 | NUR ---
CALLED LAB REGARDING PLASMA. PER LAB THERE'S NO PLASMA AVAILABLE.
--- NOTE | 2020-11-13 23:24 | NUR ---
INSERTED NEW IV ON RIGHT AC 20G. PATIENT TOLERATED IT WELL. WILL CONTINUE TO MONITOR
[2020-11-14] VITALS: BP 93/54
--- NOTE | 2020-11-14 01:17 | NUR ---
RESISTANCE WELDER REFUSED TO TAKE PATIENT FOR CT ANGIO CONTRAST. PER RESISTANCE WELDER HE NEEDS DOCTOR SIGNATURE EVEN THOUGH DOCTOR GAVE ME PERMISSION TO DO CO-SIGN WITH ANOTHER RN. FARM ASSISTANT IS AWARE OF THE SITUATION
--- NOTE | 2020-11-14 02:06 | NUR ---
MADE ROUNDS. PATIENT SLEEPING RESPIRATION EVEN UNLABORED ON 4L NC O2. NO DISTRESS NOTED. WILL CONTINUE TO MONITOR
[2020-11-14 04:00] VITALS: BP_SYST 113; BP_SYST 99; BP_DIAS 48; BP_DIAS 53
--- NOTE | 2020-11-14 04:30 | NUR ---
MORNING CARE PROVIDED
--- NOTE | 2020-11-14 07:18 | NUR ---
ENDORSED PATIENT TO DAY SHIFT NURSE FOR CONTINUITY OF CARE
--- NOTE | 2020-11-14 07:20 | NUR ---
RECEIVED REPORT FROM NIGHT NURSE PATIENT IS AAOX4 ON 4 LPM VIA NC, SKIN INTACT, IV INTACT ON RIGHT HAND AND RIGHT AC, FOR CT ANGIO UNDER DR HAWTHORNE, PT EVAL YESTERDAY PAT NOT ABLE TO TOLERATE WITHOUT OXYGEN, WITH PLASMA CONSENT AND ORDER. SAFETY MEASURES IN PLACE AND CALL LIGHT WITHIN REACH. WILL CONTINUE TO MONITOR.
[2020-11-14] MEDS: NACL 0.9% 1,000 ML IV SCH (07:35)
[2020-11-14 08:00] VITALS: BP 100/53
[2020-11-14] MEDS: ZINC SULF 220 MG CAP PO SCH (09:16)
[2020-11-14] MEDS: ASCORBIC ACID 500 MG TAB PO SCH (09:17)
[2020-11-14] MEDS: PANTOPRAZOLE 40 MG TABEC PO SCH (09:17)
[2020-11-14 09:18] LABS: BASOPHILS # (AUTO) 0.1 K/uL (0.00-0.22); BASOPHILS % (AUTO) 0.3 % (0.0-2.0); EOSINOPHILS % (AUTO) 0.1 % (0.0-4.0); HEMATOCRIT 43.4 % (36-52); HEMOGLOBIN 14.5 g/dL (12.0-18.0); LYMPHOCYTES % (AUTO) 5.3 % (20.5-51.1); MEAN CORPUSCULAR HEMOGLOBIN 32 pg (27-31); MEAN CORPUSCULAR HGB CONC 33 g/dL (33-37); MEAN CORPUSCULAR VOLUME 94.8 fL (80-94); MONOCYTES # (AUTO) 0.9 K/uL (0.8-1.0); MONOCYTES % (AUTO) 4.7 % (1.7-9.3); NEUTROPHILS # (AUTO) 17.2 K/uL (1.8-7.7); NEUTROPHILS % (AUTO) 89.6 % (42.2-75.2); PLATELET COUNT (AUTO) 279 K/uL (140-450); RED BLOOD CELL COUNT(AUTO) 4.58 MIL/uL (4.20-6.10); WHITE BLOOD COUNT (AUTO) 19.2 K/uL (4.8-10.8)
--- NOTE | 2020-11-14 09:18 | NUR ---
MEDICATION DUE GIVEN CHECK VITAL SIGNS PRIOR TO MEDICATION BP 100/53 ID 75 PATIENT ABLE TO TOLERATE MEDICATION, NO DISTRESS NOTED AND DENIES PAIN OXYGEN SATURATION AT 90%. SAFETY MEASURES IN PLACE AND CALL LIGHT WITHIN REACH. WILL CONTINUE TO MONITOR
[2020-11-14] MEDS: COMMUNICATION ORDER MC SCH (09:19)
[2020-11-14 10:42] LABS: ALBUMIN 2.4 g/dL (3.4-5.0); ANION GAP 18.3 (8-16); ASPARTATE AMINOTRANSFERASE 33 U/L (15-37); CARBON DIOXIDE 19.3 mmol/L (21-32); CHLORIDE 109 mmol/L (98-107); CREATININE 1.2 mg/dL (0.6-1.3); GLUCOSE 121 mg/dL (74-106); MAGNESIUM 2.7 mg/dL (1.8-2.4); PHOSPHORUS 3.7 mg/dL (2.5-4.9); POTASSIUM 4.6 mmol/L (3.5-5.1); SODIUM SERUM 142 mmol/L (136-145); TOTAL BILIRUBIN 0.5 mg/dL (0.0-1.0); UREA NITROGEN, BLOOD 26 mg/dL (7-18)
[2020-11-14 12:00] VITALS: BP 97/47
--- NOTE | 2020-11-14 12:02 | NUR ---
RA SPO2 83% PLACED ON 4LPM 88%
[2020-11-14 16:00] VITALS: BP 97/58
--- NOTE | 2020-11-14 17:15 | NUR ---
MEDICATION DUE GIVEN TO PATIENT. NO DISTRESS NOTED. PT IS STABLE
[2020-11-14] MEDS: REMDESIVIR (EUA) 100 MG in NACL 0.9% 100 ML IV SCH (17:27)
--- NOTE | 2020-11-14 18:40 | NUR ---
PATIENT SCHEDULED FOR CT ANGIO. LEFT VIA WHEELCHAIR. PATIENT WAS IN STABLE CONDITION.
--- NOTE | 2020-11-14 18:59 | NUR ---
PATIENT ARRIVED TO MST UNIT FROM CT ANGIO VIA WHEELCHAIR. PATIENT IS IN STABLE CONDITION
--- NOTE | 2020-11-14 19:20 | NUR ---
RECEIVED BEDSIDE REPORT FROM DAY SHIFT NURSE. PATIENT AWAKE EATING DINNER RESPIRATION EVEN UNLABORED ON 4L NC O2. SATING 90-92% NO DISTRESS NOTED. SKIN IS WARM AND DRY. IV PATENT AND INTACT PLAN OF CARE WAS DISCUSSED. ALL SAFETY MEASURES IN PLACE. BED IS AT LOW POSITION. CALL LIGHT WITHIN REACH. WILL CONTINUE TO MONITOR
--- NOTE | 2020-11-14 19:39 | NUR ---
GAVE ENDORSEMENT TO APPRENTICESHIP CONSULTANT NURSE. PATIENT IS IN STABLE CONDITION.
[2020-11-14 20:00] VITALS: BP 113/55
--- NOTE | 2020-11-14 20:30 | NUR ---
ALL SCHEDULED MEDS WERE GIVEN PER ORDER. NO ASE NOTED. WILL CONTINUE TO MONITOR
--- NOTE | 2020-11-14 20:50 | NUR ---
PATIENT IS HUNGRY SANDWICH PROVIDED
--- NOTE | 2020-11-14 22:41 | NUR ---
SPOKE WITH PATIENTS . GAVE AN UPDATE REGARDING PATIENT CONDITION. PER SHE WANTS TO TALK TO CM IN REGARDS TO HOME O2. PATIENT WAS UPSET THAT THE HOME O2 SERVICES ARE CALLING THE PATIENT INSTEAD OF HER. WILL ENDORSE TO DAY SHIFT TO FOLLOW UP
--- NOTE | 2020-11-14 22:44 | NUR ---
PATIENTS [facility] (SENIA) NUMBER [phone] OR [phone]
[2020-11-15] VITALS: BP 108/61
[2020-11-15] MEDS: NACL 0.9% 1,000 ML IV SCH ×2 (00:19→15:33)
--- NOTE | 2020-11-15 00:30 | NUR ---
VITALS WERE TAKEN. PATIENT O2 ON HIGH 70'S AND LOW 80'S ON 4L NC. TITRATE O2 UP TO 6L AND PAGED RT
--- NOTE | 2020-11-15 00:35 | NUR ---
CALLED TO BEDSIDE DUE TO PT DESATURATING. RN AT BEDSIDE PLACED PT ON NON REBREATHER MASK. SPO2 94%. PT IS IN NO RESPIRATORY DISTRESS AT THIS TIME. WILL CONTINUE TO MONITOR.
--- NOTE | 2020-11-15 00:56 | NUR ---
PLACED PATIENT ON 15L NRB MASK PATIENT IS NOW SATING ON HIGH 90'S. NO DISTRESS NOTED
--- NOTE | 2020-11-15 01:03 | NUR ---
UPDATED PATIENTS REGARDING PATIENTS CONDITION
--- NOTE | 2020-11-15 01:26 | NUR ---
CHECKED ON PATIENT. PATIENT SLEEPING RESPIRATION EVEN UNLABORED ON 15LNRB MASK NO DISTRESS NOTED. SATING 97% WILL CONTINUE TO MONITOR
--- NOTE | 2020-11-15 03:09 | NUR ---
MADE ROUNDS. PATIENT SLEEPING RESPIRATION EVEN UNLABORED ON BIPAP MACHINE ON 100% FIO2 SATING 95%. NO DISTRESS NOTED. WILL CONTINUE TO MONITOR
[2020-11-15 04:00] VITALS: BP 115/71
--- NOTE | 2020-11-15 05:30 | NUR ---
PLASMA TRANSFUSION STARTED
--- NOTE | 2020-11-15 06:00 | NUR ---
PLASMA TRANSFUSION DONE NO REACTION NOTED
--- NOTE | 2020-11-15 07:15 | NUR ---
RECEIVED ENDORSEMENT FROM PATIENT SERVICE ASSOCIATE, ASLEEP ON BED, WITH O2 AT 15L/MIN VIA NON REBREATHER MASK, NOT IN DISTRESS NOTED. WITH ONGOING IV FLUID WITH 0.9% NS 60ML/HOUR INFUSING AT RT AC G 20, WITH G22 AT LEFT HAND ON SALINE LOCK. SAFETY MEASURES IN PLACE AND CONTINUE MONITOR.
[2020-11-15 08:00] VITALS: BP 106/63
[2020-11-15 08:00] LABS: BASOPHILS % (AUTO) 0.2 % (0.0-2.0); HEMATOCRIT 38.4 % (36-52); HEMOGLOBIN 12.7 g/dL (12.0-18.0); LYMPHOCYTES # (AUTO) 0.5 K/uL (2.0-11.5); LYMPHOCYTES % (AUTO) 3.2 % (20.5-51.1); MEAN CORPUSCULAR HEMOGLOBIN 31 pg (27-31); MEAN CORPUSCULAR HGB CONC 33 g/dL (33-37); MEAN CORPUSCULAR VOLUME 94.5 fL (80-94); MONOCYTES # (AUTO) 0.8 K/uL (0.8-1.0); NEUTROPHILS # (AUTO) 14.2 K/uL (1.8-7.7); NEUTROPHILS % (AUTO) 91.6 % (42.2-75.2); PLATELET COUNT (AUTO) 200 K/uL (140-450); RED BLOOD CELL COUNT(AUTO) 4.06 MIL/uL (4.20-6.10); RED CELL DISTRIBUTION WIDTH 13.3 % (11.6-13.7); WHITE BLOOD COUNT (AUTO) 15.5 K/uL (4.8-10.8)
[2020-11-15 08:28] LABS: PHOSPHORUS 3.6 mg/dL (2.5-4.9)
[2020-11-15] MEDS: PANTOPRAZOLE 40 MG TABEC PO SCH (09:40)
[2020-11-15] MEDS: ASCORBIC ACID 500 MG TAB PO SCH (09:41)
[2020-11-15] MEDS: ZINC SULF 220 MG CAP PO SCH (09:41)
[2020-11-15] MEDS: COMMUNICATION ORDER MC SCH (09:54)
--- NOTE | 2020-11-15 09:54 | NUR ---
FULLY AWAKE AND ALERT, DUE MEDICATION GIVEN, PT MS CARPIO AT BEDSIDE DOING THERAPY
[2020-11-15 12:00] VITALS: BP 101/57
--- NOTE | 2020-11-15 12:36 | NUR ---
FULLY AWAKE AND ALERT, STILL ON O2 AT 15L/MIN VIA NON REBREATHER MASK, NOT IN DISTRESS NOTED, O2 SAT-95%
--- NOTE | 2020-11-15 15:37 | NUR ---
ASLEEP, NOT IN DISTRESS, ABOVE IV FLUID CONSUMED AND FOLLOWED UP BY SAME IV FLUID AT SAME RATE
--- NOTE | 2020-11-15 15:57 | NUR ---
11/15/20 RD INITIAL ASSESSMENT COMPLETED PLEASE REFER TO NUTRITION ASSESSMENT UNDER CARE ACTIVITY FOR ESTIMATED NUTRITIONAL NEEDS. 1. CONTINUE MECHANICAL SOFT DIET TOLERATED 2. RECOMMEND ENSURE BID 3. ENCOURAGE PO INTAKE ABOVE 75% 4. RD TO FOLLOW-UP 3-5 DAYS, MODERATE RISK SAMUEL MEHTA, RD
[2020-11-15 16:00] VITALS: BP 104/57
--- NOTE | 2020-11-15 17:22 | NUR ---
FULLY AWAKE AND ALERT, DUE MEDICATION GIVEN
[2020-11-15] MEDS: REMDESIVIR (EUA) 100 MG in NACL 0.9% 100 ML IV SCH (17:37)
--- NOTE | 2020-11-15 19:00 | NUR ---
PATIENT RECEIVED IN BED ALERT AND ORIENTED X 4. VERBALIZING NEEDS TO STAFF. PT SEEN AND ASSESSED. SKIN ACYANOTIC, ON NON REBREATHER 15L WITH SPO2 94%. CARDIAC SINUS RHYTHM. COVID PROTOCOL CONTINUED. PT IN NO RESPIRATORY DISTRESS AT THIS TIME. RN EDUCATED PATIENT TO PLAN OF CARE. MEDICATION REGIMEN, FALL AND SAFETY PRECAUTION AND MEDICAL CONCERNS AND EDUCATION. DISCUSSED PENDING AM PT EVALUATION IN AM. PATIENT RECEPTIVE TO PLAN OF CARE.
--- NOTE | 2020-11-15 19:38 | NUR ---
ENDORSED TO EDITING COMPUTER PUBLISHER IN STABLE CONDITION FOR CONTINUITY OF CARE.
[2020-11-15 20:00] VITALS: BP 102/58
[2020-11-16] VITALS: BP 95/50
--- NOTE | 2020-11-16 | NUR ---
PATIENT SLEEPING DURING ROUNDING, EASILY AROUSED. FALL AND SAFETY PRECAUTIONS MAINTAINED. VSS. NO ACUTE DISTRESS NOTED.
--- NOTE | 2020-11-16 02:11 | NUR ---
PT SEEN AND ASSESSED. PT ON NON REBREATHER 15L WITH SPO2 94%. PT IN NO RESPIRATORY DISTRESS AT THIS TIME. WILL CONTINUE TO MONITOR PT.
[2020-11-16 04:00] VITALS: BP 107/63
--- NOTE | 2020-11-16 07:25 | NUR ---
RECEIVED ENDORSEMENT FROM APPLIED ANTHROPOLOGIST, ASLEEP ON BED, WITH O2 AT 15L/MIN VIA NON REBREATHER MASK, 02SAT-90% NOT IN DISTRESS NOTED. WITH ONGOING IV FLUID WITH 0.9% NS 60ML/HOUR INFUSING AT RT AC G 20, WITH G22 AT LEFT HAND ON SALINE LOCK. SAFETY MEASURES IN PLACE AND CONTINUE MONITOR.
[2020-11-16 08:00] VITALS: BP 105/64
[2020-11-16] MEDS: PANTOPRAZOLE 40 MG TABEC PO SCH (08:52)
[2020-11-16] MEDS: ZINC SULF 220 MG CAP PO SCH (08:53)
[2020-11-16] MEDS: ASCORBIC ACID 500 MG TAB PO SCH (08:53)
[2020-11-16] MEDS: NACL 0.9% 1,000 ML IV SCH (09:01)
--- NOTE | 2020-11-16 09:05 | NUR ---
FULLY AWAKE AND ALERT, DUE MEDICATION GIVEN. BREAKFAST SERVED
--- NOTE | 2020-11-16 10:24 | NUR ---
O0YMI-41% AT 15L/MIN VIA NON REBREATHER MASK, FULLY AWAKE AND ALERT
--- NOTE | 2020-11-16 11:45 | NUR ---
ASSISTED TO BEDSIDE COMMODE, PASSED LARGE AMOUNT OF PASTY STOOL, [facility] ANAL CARE DONE.
[2020-11-16 12:00] VITALS: BP 94/57
--- NOTE | 2020-11-16 12:13 | NUR ---
PHYSICAL THERAPY AT BEDSIDE DOING SOME EXERCISE.
--- NOTE | 2020-11-16 14:47 | NUR ---
STILL SITTING ON THE CHAIR, IV CANNULA AT LEFT AC, LEAKING NOTED. REMOVED AND DRESSING APPLIED
[2020-11-16 16:00] VITALS: BP 91/45
--- NOTE | 2020-11-16 16:48 | NUR ---
ASSISTED TO GO BACK TO BED, WITH MILD SOB WHEN MOVING, PLACE ON HIGH BACK REST POSITION.O2 STILL AT 15L/MIN VIA NON REBREATHER MASK
--- NOTE | 2020-11-16 18:01 | NUR ---
ON RIGHT SIDE LYING POSITION, APPARENTLY SLEEPING, O3OAQ-40%, NOT IN DISTRESS NOTED
--- NOTE | 2020-11-16 19:00 | NUR ---
PATIENT RECIEVED IN BED WITH O2 AT 15L/MIN VIA NON REBREATHER MASK, 02SAT-90% NOT IN DISTRESS NOTED. WITH ONGOING IV FLUID WITH 0.9% NS 60ML/HOUR INFUSING AT RT AC G 20, WITH G22 AT LEFT HAND ON SALINE LOCK. SAFETY MEASURES IN PLACE AND CONTINUE MONITOR. PATIENT EDUCATED TO RN PLAN OF CARE OF CARE. FALL AND SAFETY PRECAUTIONS AND MEDICATION MANAGEMENT. VSS. NO ACUTE DISTRESS NOTED.
--- NOTE | 2020-11-16 19:20 | NUR ---
ENDORSED TO RETORT ENGINEER STABLE CONDITION FOR CONTINUITY OF CARE.
[2020-11-16 20:00] VITALS: BP_SYST 113; BP_SYST 85; BP_DIAS 49; BP_DIAS 56
[2020-11-17] VITALS: BP 104/57
--- NOTE | 2020-11-17 | NUR ---
PATIENT SLEEPING DURING ROUNDING, EASILY AROUSED. NO ACUTE DISTRESS NOTED. VSS.
[2020-11-17] MEDS: NACL 0.9% 1,000 ML IV SCH ×2 (02:15→20:55)
[2020-11-17 04:00] VITALS: BP 98/51
[2020-11-17 06:44] LABS: BASOPHILS % (AUTO) 0.1 % (0.0-2.0); HEMATOCRIT 40.8 % (36-52); HEMOGLOBIN 13.5 g/dL (12.0-18.0); LYMPHOCYTES # (AUTO) 0.4 K/uL (2.0-11.5); LYMPHOCYTES % (AUTO) 2.1 % (20.5-51.1); MEAN CORPUSCULAR HEMOGLOBIN 31 pg (27-31); MEAN CORPUSCULAR HGB CONC 33 g/dL (33-37); MEAN CORPUSCULAR VOLUME 94.6 fL (80-94); MONOCYTES # (AUTO) 0.6 K/uL (0.8-1.0); MONOCYTES % (AUTO) 3.6 % (1.7-9.3); NEUTROPHILS # (AUTO) 15.8 K/uL (1.8-7.7); NEUTROPHILS % (AUTO) 94.2 % (42.2-75.2); PLATELET COUNT (AUTO) 128 K/uL (140-450); RED BLOOD CELL COUNT(AUTO) 4.31 MIL/uL (4.20-6.10); RED CELL DISTRIBUTION WIDTH 13.1 % (11.6-13.7); WHITE BLOOD COUNT (AUTO) 16.8 K/uL (4.8-10.8)
--- NOTE | 2020-11-17 07:52 | NUR ---
RECEIVED PT FROM METALWORKING INSTRUCTOR NURSE, PT IS RESTING IN BED, ON 15L NRB, IV NOTED TO L HAND 22 GUAGE ADN RAC 20G RUNNING 60 ML NS, CONTINENT, ON MECHANICAL SOFT DIET, SAFETY AND FALL PRECAUTIONS IN PLACE, WILL CONTINUE TO MONITOR.
[2020-11-17 08:00] VITALS: BP 103/60
[2020-11-17 08:00] LABS: ANION GAP 12.9 (8-16); CARBON DIOXIDE 24.3 mmol/L (21-32); CHLORIDE 109 mmol/L (98-107); CREATININE 1.1 mg/dL (0.6-1.3); GLUCOSE 151 mg/dL (74-106); POTASSIUM 4.2 mmol/L (3.5-5.1); SODIUM SERUM 142 mmol/L (136-145); UREA NITROGEN, BLOOD 29 mg/dL (7-18)
[2020-11-17] MEDS: PANTOPRAZOLE 40 MG TABEC PO SCH (08:54)
[2020-11-17] MEDS: ZINC SULF 220 MG CAP PO SCH (08:54)
[2020-11-17] MEDS: ASCORBIC ACID 500 MG TAB PO SCH (08:54)
[2020-11-17] MEDS: guaiFENesin DM 200/20 MG-10 ML 10 ML UDC PO PRN (09:00)
--- NOTE | 2020-11-17 09:22 | NUR ---
SCHEDULED MEDICATIONS ADMINISTERED PLUS ROBITUSSIN FOR COUGH, EDUCATION PROVIDED, PT VERBALIZED UNDERSTANDING, WILL CONTINUE TO MONITOR.
--- NOTE | 2020-11-17 11:15 | NUR ---
PT IS RESTING IN BED, NO SIGNS OF DISTRESS NOTED, OXYGEN SATURATION ABOVE 90 %, WILL CONTINUE TO MAKE FREQUENT ROUNDS.
[2020-11-17 12:00] VITALS: BP 98/51
--- NOTE | 2020-11-17 13:05 | NUR ---
PT IS WATCHING TELEVISION, NO SIGNS OF DISTRESS NOTED, OXYGEN SATURATION IS ABOVE 90%, PT STATES HE IS DOING OK, WILL CONTINUE TO MONITOR.
[2020-11-17 16:00] VITALS: BP 121/64
--- NOTE | 2020-11-17 16:07 | NUR ---
REMINDER TO PT TO SELF TURN, PT OXYGEN SATURATION IS ABOVE 90%,WILL CONTINUE TO MAKE FREQUENT ROUNDS
--- NOTE | 2020-11-17 19:13 | NUR ---
RECEIVED PATIENT FROM AM SHIFT NURSE FOR CONTINUITY OF CARE. AAOX4. RESPIRATIONS TACHYPNEIC AND SLIGHTLY LABORED. CONTINUES ON O2 15L VIA NRM, O2SAT 91%. SKIN WARM, DRY. SALINE LOCK TO LEFT HAND 22G PATENT/INTACT. IV SITE TO RIGHT AC 22G PATENT/INTACT, INFUSING FLUIDS WELL. NO C/O PAIN. NO S/S ACUTE DISTRESS. ABDOMEN SOFT, NONTENDER, NONDISTENDED. BOWEL SOUNDS ACTIVE X4 QUADRANTS. PATIENT IS CONTINENT OF B/B. PLAN OF CARE DISCUSSED. ISOLATION PRECAUTIONS OBSERVED. SAFETY PRECAUTIONS IN PLACE. CALL LIGHT WITHIN REACH AT ALL TIMES.
--- NOTE | 2020-11-17 19:15 | NUR ---
ENDORSED PT TO AGRONOMY ADVISOR NURSE FOR CONTINUITY OF CARE.
[2020-11-17 20:00] VITALS: BP 91/72
--- NOTE | 2020-11-17 21:00 | NUR ---
DUE MEDS GIVEN. NO S/S ACUTE DISTRESS. CALL LIGHT WITHIN REACH. FREQUENT ROUNDS MADE BY ALL STAFF. ISOLATION PRECAUTIONS OBSERVED.
--- NOTE | 2020-11-17 23:00 | NUR ---
PLAN OF CARE DISCUSSED WITH PATIENT'S SENIA.
[2020-11-18] VITALS: BP 114/53
--- NOTE | 2020-11-18 01:00 | NUR ---
MADE ROUNDS. PATIENT IS RESTING COMFORTABLY IN BED. NO S/S ACUTE DISTRESS. ISOLATION PRECAUTIONS OBSERVED. CALL LIGHT WITHIN REACH AT ALL TIMES.
[2020-11-18 04:00] VITALS: BP_SYST 103; BP_SYST 109; BP_DIAS 53; BP_DIAS 61
--- NOTE | 2020-11-18 07:25 | NUR ---
RECEIVED ENDORSEMENT FROM BAFFLE MOUNTER, ASLEEP ON BED, WITH O2 AT 15L/MIN VIA NON REBREATHER MASK, 02SAT-89% NOT IN DISTRESS NOTED. WITH ONGOING IV FLUID WITH 0.9% NS 60ML/HOUR INFUSING AT RIGHT HAND G22 IV CANNULA NOTED. SAFETY MEASURES IN PLACE AND CONTINUE MONITOR.
[2020-11-18 08:00] VITALS: BP 107/65
[2020-11-18 08:28] LABS: BASOPHILS # (AUTO) 0.1 K/uL (0.00-0.22); BASOPHILS % (AUTO) 0.3 % (0.0-2.0); EOSINOPHILS % (AUTO) 0.2 % (0.0-4.0); HEMATOCRIT 40.8 % (36-52); HEMOGLOBIN 13.5 g/dL (12.0-18.0); LYMPHOCYTES # (AUTO) 0.3 K/uL (2.0-11.5); LYMPHOCYTES % (AUTO) 1.7 % (20.5-51.1); MEAN CORPUSCULAR HEMOGLOBIN 32 pg (27-31); MEAN CORPUSCULAR HGB CONC 33 g/dL (33-37); MEAN CORPUSCULAR VOLUME 94.9 fL (80-94); MONOCYTES # (AUTO) 0.6 K/uL (0.8-1.0); MONOCYTES % (AUTO) 3.3 % (1.7-9.3); NEUTROPHILS # (AUTO) 17.5 K/uL (1.8-7.7); NEUTROPHILS % (AUTO) 94.5 % (42.2-75.2); PLATELET COUNT (AUTO) 130 K/uL (140-450); RED BLOOD CELL COUNT(AUTO) 4.29 MIL/uL (4.20-6.10); RED CELL DISTRIBUTION WIDTH 13.5 % (11.6-13.7); WHITE BLOOD COUNT (AUTO) 18.5 K/uL (4.8-10.8)
[2020-11-18 09:25] LABS: ANION GAP 12.1 (8-16); CARBON DIOXIDE 26.4 mmol/L (21-32); CHLORIDE 107 mmol/L (98-107); GLUCOSE 147 mg/dL (74-106); POTASSIUM 4.5 mmol/L (3.5-5.1); SODIUM SERUM 141 mmol/L (136-145); UREA NITROGEN, BLOOD 25 mg/dL (7-18)
[2020-11-18] MEDS: ASCORBIC ACID 500 MG TAB PO SCH (09:28)
[2020-11-18] MEDS: PANTOPRAZOLE 40 MG TABEC PO SCH (09:28)
[2020-11-18] MEDS: ZINC SULF 220 MG CAP PO SCH (09:29)
--- NOTE | 2020-11-18 09:30 | NUR ---
FULLY AWAKE AND ALERT, HAVING HIS BREAKFAST, DUE MEDICATION GIVEN
--- NOTE | 2020-11-18 11:40 | NUR ---
FULLY AWAKE AND ALERT, NOT IN DISTRESS NOTED. O2 AT 15L/MIN VIA NON REBREATHER MASK, 02SAT-90%
[2020-11-18 12:00] VITALS: BP 105/54
[2020-11-18] MEDS: NACL 0.9% 1,000 ML IV SCH (12:27)
--- NOTE | 2020-11-18 14:21 | NUR ---
ABOVE IV FLUID CONSUMED, FOLLOWED UP UP BY SAME IV FLUID WITH SAME RATE
[2020-11-18 16:00] VITALS: BP 98/52
--- NOTE | 2020-11-18 16:42 | NUR ---
ASLEEP, NOT IN DISTRESS NOTED
--- NOTE | 2020-11-18 19:25 | NUR ---
RECEIVED PATIENT FROM AM SHIFT NURSE FOR CONTINUITY OF CARE. AAOX4. RESPIRATIONS TACHYPNEIC AND SLIGHTLY LABORED. CONTINUES ON O2 15L VIA NRM, O2SAT 88%. SKIN WARM, DRY. SALINE LOCK TO LEFT HAND 22G PATENT/INTACT. IV SITE TO RIGHT AC 22G PATENT/INTACT, INFUSING FLUIDS WELL. NO C/O PAIN. NO S/S ACUTE DISTRESS. ABDOMEN SOFT, NONTENDER, NONDISTENDED. BOWEL SOUNDS ACTIVE X4 QUADRANTS. PATIENT IS CONTINENT OF B/B. PLAN OF CARE DISCUSSED. ISOLATION PRECAUTIONS OBSERVED. SAFETY PRECAUTIONS IN PLACE. CALL LIGHT WITHIN REACH AT ALL TIMES.
--- NOTE | 2020-11-18 19:25 | NUR ---
ENDORSED TO SENIOR ADMINISTRATOR SUPPORT IN STABLE CONDITION FOR CONTINUITY OF CARE
[2020-11-18 20:00] VITALS: BP 103/57
--- NOTE | 2020-11-18 21:00 | NUR ---
DUE MEDS GIVEN. PATIENT RESTING COMFORTABLY IN BED. NO S/S ACUTE DISTRESS. CALL LIGHT WITHIN REACH. ISOLATION PRECAUTIONS OBSERVED.
--- NOTE | 2020-11-18 23:00 | NUR ---
PATIENT IS ASLEEP. NO S/S ACUTE DISTRESS. CALL LIGHT WITHIN REACH. ISOLATION PRECAUTIONS OBSERVED.
[2020-11-19] VITALS: BP 106/55
--- NOTE | 2020-11-19 01:00 | NUR ---
MADE ROUNDS. PATIENT IS ASLEEP. NO S/S ACUTE DISTRESS. CALL LIGHT WITHIN REACH. ISOLATION PRECAUTIONS OBSERVED.
--- NOTE | 2020-11-19 03:00 | NUR ---
ALL NEEDS ANTICIPATED AND MET. NO S/S ACUTE DISTRESS. CALL LIGHT WITHIN REACH. ISOLATION PRECAUTIONS OBSERVED.
[2020-11-19 04:00] VITALS: BP 99/54
[2020-11-19] MEDS: NACL 0.9% 1,000 ML IV SCH ×2 (04:03→17:37)
--- NOTE | 2020-11-19 05:30 | NUR ---
PATIENT IS SLEEPING WELL. NO S/S ACUTE DISTRESS. CALL LIGHT WITHIN REACH. ISOLATION PRECAUTIONS OBSERVED.
--- NOTE | 2020-11-19 07:39 | NUR ---
ENDORSED TO AM SHIFT NURSE FOR CONTINUITY OF CARE.
[2020-11-19 08:00] VITALS: BP 98/52
--- NOTE | 2020-11-19 08:00 | NUR ---
RECEIVED PT FROM HIDE STRETCHER HAND NURSE, ON 15LNRB, IV NOTED TO RAC 22G, CONTINENT, TELE MONITOR ON, SAFETY AND VALL PRECAUTIONS IN PLACE, WILL CONTINUE TO MONITOR.
[2020-11-19 09:45] LABS: ANION GAP 11.3 (8-16); CARBON DIOXIDE 27.5 mmol/L (21-32); CHLORIDE 106 mmol/L (98-107); CREATININE 0.9 mg/dL (0.6-1.3); GLUCOSE 140 mg/dL (74-106); POTASSIUM 4.8 mmol/L (3.5-5.1); SODIUM SERUM 140 mmol/L (136-145); UREA NITROGEN, BLOOD 26 mg/dL (7-18)
[2020-11-19] MEDS: PANTOPRAZOLE 40 MG TABEC PO SCH (09:46)
[2020-11-19] MEDS: ZINC SULF 220 MG CAP PO SCH (09:47)
[2020-11-19] MEDS: ASCORBIC ACID 500 MG TAB PO SCH (09:47)
--- NOTE | 2020-11-19 09:51 | NUR ---
SCHEDULED MEDICATIONS ADMINISTERED, PT EDUCATION PROVIDED, RT CHANGED NRB TO HIGH FLOW NC 40L @100%, EDUCATION PROVIDE, PT VERBALIZED UNDERSTANDING, WILL CONTINUE TO MONITOR.
[2020-11-19] MEDS: guaiFENesin DM 200/20 MG-10 ML 10 ML UDC PO PRN (10:39)
--- NOTE | 2020-11-19 10:39 | NUR ---
LOVENOX HAS BEEN HELD, LAB NOTIFIED OF PENDING CBC STATUS, WAS NOTIFIED BY LAB THAT THERE WILL BE A REDRAW, WILL ADMINISTER ONCE AVAILABLE CBC, GUAIFENESIN ADMINISTERED 5ML, EDUCATION PROVIDED, WILL CONTINUE TO MONITOR.
[2020-11-19 11:09] LABS: HEMATOCRIT 40.5 % (36-52); HEMOGLOBIN 13.4 g/dL (12.0-18.0); LYMPHOCYTES # (AUTO) 0.3 K/uL (2.0-11.5); LYMPHOCYTES % (AUTO) 1.5 % (20.5-51.1); MEAN CORPUSCULAR HEMOGLOBIN 31 pg (27-31); MEAN CORPUSCULAR HGB CONC 33 g/dL (33-37); MEAN CORPUSCULAR VOLUME 94.7 fL (80-94); MONOCYTES # (AUTO) 0.8 K/uL (0.8-1.0); MONOCYTES % (AUTO) 3.8 % (1.7-9.3); NEUTROPHILS # (AUTO) 20.9 K/uL (1.8-7.7); NEUTROPHILS % (AUTO) 94.7 % (42.2-75.2); PLATELET COUNT (AUTO) 136 K/uL (140-450); RED BLOOD CELL COUNT(AUTO) 4.28 MIL/uL (4.20-6.10); RED CELL DISTRIBUTION WIDTH 13.4 % (11.6-13.7)
--- NOTE | 2020-11-19 11:19 | NUR ---
IV NOTED TO BE REMOVED, PT STATES THAT IT WAS REMOVED BY HIM ACCIDENTALLY, NEW IV PLACED NOW TO L FORE ARM, WILL CONTINUE TO MONITOR.
[2020-11-19 12:00] VITALS: BP 102/60
[2020-11-19 16:00] VITALS: BP 103/52
--- NOTE | 2020-11-19 19:00 | NUR ---
ENDORSED PT TO ANCHORER NURSE FOR CONTINUITY OF CARE.
--- NOTE | 2020-11-19 19:00 | NUR ---
RECEIVED PATIENT FROM AM SHIFT NURSE FOR CONTINUITY OF CARE. AAOX4. RESPIRATIONS TACHYPNEIC AND SLIGHTLY LABORED. CONTINUES ON O2 15L VIA NRM, HI DANNIELLE 40L, 100%. SKIN WARM, DRY. IV SITE TO LEFT FOREARM 22G PATENT/INTACT, INFUSING FLUIDS WELL. NO C/O PAIN. NO S/S ACUTE DISTRESS. ABDOMEN SOFT, NONTENDER, NONDISTENDED. BOWEL SOUNDS ACTIVE X4 QUADRANTS. PATIENT IS CONTINENT OF B/B. PLAN OF CARE DISCUSSED. ISOLATION PRECAUTIONS OBSERVED. SAFETY PRECAUTIONS IN PLACE. CALL LIGHT WITHIN REACH AT ALL TIMES.
[2020-11-19 20:00] VITALS: BP 101/53
--- NOTE | 2020-11-19 21:30 | NUR ---
DUE MEDS GIVEN. NO S/S ACUTE DISTRESS. CALL LIGHT WITHIN REACH. SAFETY PRECAUTIONS IN PLACE. ISOLATION PRECAUTIONS OBSERVED.
--- NOTE | 2020-11-19 23:00 | NUR ---
RT ENCOURAGED PATIENT TO PRONE. PATIENT COMPLIANT WITH CARE. CALL LIGHT WITHIN REACH. ISOLATION PRECAUTIONS OBSERVED. SAFETY PRECAUTIONS IN PLACE.
[2020-11-20] VITALS (7 sets, daily range): BP systolic 93–105; BP diastolic 52–66
--- NOTE | 2020-11-20 01:00 | NUR ---
MADE ROUNDS. PATIENT IS ASLEEP. NO S/S ACUTE DISTRESS. CALL LIGHT WITHIN REACH.
--- NOTE | 2020-11-20 03:00 | NUR ---
PER PATIENT'S REQUEST, RELEASE INFORMATION ONLY TO SENIA.
--- NOTE | 2020-11-20 05:40 | NUR ---
PATIENT ASLEEP. NO S/S ACUTE DISTRESS. CALL LIGHT WITHIN REACH. SAFETY PRECAUTIONS IN PLACE. ISOLATION PRECAUTIONS OBSERVED.
--- NOTE | 2020-11-20 07:20 | NUR ---
RECEIVED ENDORSEMENT FROM ORDER TO DELIVERY SUPERVISOR, AWAKE, ALERT, ORIENTEDX4, ON HIGH FLOW METER OF OF 100%, FLOW RATE-40L/MIN, +15L/MIN VIA NON REBREATHER MASK, O2 SAT-91%. WITH ONGOING IV FLUID WITH 0.9% NS AT 60ML/HOUR INFUSING AT LEFT FOREARM, G22 IV CANNULA NOTED. SAFETY MEASURES IN PLACE AND CONTINUE MONITOR.
[2020-11-20 07:33] LABS: ANION GAP 13.4 (8-16); CARBON DIOXIDE 25.1 mmol/L (21-32); CHLORIDE 104 mmol/L (98-107); CREATININE 0.9 mg/dL (0.6-1.3); GLUCOSE 148 mg/dL (74-106); POTASSIUM 4.5 mmol/L (3.5-5.1); SODIUM SERUM 138 mmol/L (136-145); UREA NITROGEN, BLOOD 25 mg/dL (7-18)
[2020-11-20 07:38] LABS: BASOPHILS % (AUTO) 0.1 % (0.0-2.0); HEMATOCRIT 43.9 % (36-52); HEMOGLOBIN 14.6 g/dL (12.0-18.0); LYMPHOCYTES # (AUTO) 0.3 K/uL (2.0-11.5); LYMPHOCYTES % (AUTO) 1.5 % (20.5-51.1); MEAN CORPUSCULAR HEMOGLOBIN 31 pg (27-31); MEAN CORPUSCULAR HGB CONC 33 g/dL (33-37); MEAN CORPUSCULAR VOLUME 94.2 fL (80-94); MONOCYTES % (AUTO) 4.8 % (1.7-9.3); NEUTROPHILS % (AUTO) 93.6 % (42.2-75.2); PLATELET COUNT (AUTO) 124 K/uL (140-450); RED BLOOD CELL COUNT(AUTO) 4.67 MIL/uL (4.20-6.10); WHITE BLOOD COUNT (AUTO) 20.3 K/uL (4.8-10.8)
[2020-11-20] MEDS: ZINC SULF 220 MG CAP PO SCH (08:31)
[2020-11-20] MEDS: ASCORBIC ACID 500 MG TAB PO SCH (08:31)
[2020-11-20] MEDS: PANTOPRAZOLE 40 MG TABEC PO SCH (08:31)
--- NOTE | 2020-11-20 08:45 | NUR ---
FULLY AWAKE AND ALERT, PLACE ON HIGH BACK REST POSITION, DUE MEDICATION GIVEN. COVID HAMZAH TEST AND COVID PCR SWAB DONE AND SENT TO LAB ORDERED.HEALTH TEACHING PROVIDED, VERBALIZED UNDERSTANDING
--- NOTE | 2020-11-20 11:20 | NUR ---
PT CAME AND THERAPY RENDERED
--- NOTE | 2020-11-20 12:20 | NUR ---
ON RIGHT SIDE LYING POSITION, APPARENTLY ASLEEP AND C3CJH-45% NOTED
[2020-11-20] MEDS: NACL 0.9% 1,000 ML IV SCH (13:48)
--- NOTE | 2020-11-20 14:58 | NUR ---
APPARENTLY AWAKE, PLACE ON HIGH BACK REST POSITION, LUNCH OFFERED
--- NOTE | 2020-11-20 16:14 | NUR ---
11/20/20 RD FOLLOW UP COMPLETED PLEASE REFER TO NUTRITION ASSESSMENT UNDER CARE ACTIVITY FOR ESTIMATED NUTRITIONAL NEEDS. 1. CONT. MECHANICAL SOFT DIET TOLERATED 2. CONT. ENSURE TID 3. ENCOURAGE PO INTAKE ABOVE 75% 4. RD TO FOLLOW-UP 3-5 DAYS, MODERATE RISK SAMUEL MEHTA, RD
--- NOTE | 2020-11-20 17:59 | NUR ---
ASSISTED WELL TO BEDSIDE COMMODE, NOT IN DISTRESS NOTED
--- NOTE | 2020-11-20 19:19 | NUR ---
ENDORSED TO FORESTRY CONSERVATION WORKER FOR CONTINUITY OF CARE, STILL SITTING AT BEDSIDE COMMODE.
--- NOTE | 2020-11-20 19:20 | NUR ---
RECEIVED PATIENT FROM AM SHIFT NURSE FOR CONTINUITY OF CARE. AAOX4. RESPIRATIONS SHALLOW AND TACHYPNEIC. CONTINUES ON O2 11L VIA NRM, HI DANNIELLE 40L 100%. O2SAT 90%. SKIN WARM, DRY. IV SITE TO LEFT FOREARM 22G PATENT/INTACT, INFUSING FLUIDS WELL. NO C/O PAIN. NO S/S ACUTE DISTRESS. ABDOMEN SOFT, NONTENDER, NONDISTENDED. BOWEL SOUNDS ACTIVE X4 QUADRANTS. PATIENT IS CONTINENT OF B/B. PLAN OF CARE DISCUSSED. SAFETY PRECAUTIONS IN PLACE. ISOLATION PRECAUTIONS OBSERVED. CALL LIGHT WITHIN REACH.
--- NOTE | 2020-11-20 21:00 | NUR ---
DUE MEDS GIVEN. NO S/S ACUTE DISTRESS. ISOLATION PRECAUTIONS OBSERVED. SAFETY PRECAUTIONS IN PLACE. CALL LIGHT WITHIN REACH.
--- NOTE | 2020-11-20 21:00 | NUR ---
WATER CHANGED FOR HFNC PT SLEEPING COMFORTABLY AT THIS TIME W/ NO DISTRESS NOTED. WILL CONTINUE TO MONITOR
--- NOTE | 2020-11-20 23:00 | NUR ---
INCONTINENT CARE RENDERED. PATIENT HAD A LARGE BOWEL MOVEMENT. ASSISTED TO BED. NO S/S ACUTE DISTRESS. ISOLATION PRECAUTIONS OBSERVED. SAFETY PRECAUTIONS IN PLACE. CALL LIGHT WITHIN REACH.
[2020-11-21] VITALS: BP 98/55
--- NOTE | 2020-11-21 01:00 | NUR ---
MADE ROUNDS. PATIENT IS ASLEEP. NO S/S ACUTE DISTRESS. ISOLATION PRECAUTIONS OBSERVED. SAFETY PRECAUTIONS IN PLACE. CALL LIGHT WITHIN REACH.
--- NOTE | 2020-11-21 03:00 | NUR ---
PATIENT IS ASLEEP. NO S/S ACUTE DISTRESS. ISOLATION PRECAUTIONS OBSERVED. SAFETY PRECAUTIONS IN PLACE. CALL LIGHT WITHIN REACH.
[2020-11-21 04:00] VITALS: BP 101/55
--- NOTE | 2020-11-21 05:00 | NUR ---
ALL NEEDS ANTICIPATED AND MET. PATIENT IS RESTING COMFORTABLY IN BED. NO S/S ACUTE DISTRESS. ISOLATION PRECAUTIONS OBSERVED. SAFETY PRECAUTIONS IN PLACE. CALL LIGHT WITHIN REACH.
[2020-11-21] MEDS: NACL 0.9% 1,000 ML IV SCH ×2 (06:15→18:46)
--- NOTE | 2020-11-21 07:30 | NUR ---
ENDORSED PATIENT TO AM SHIFT NURSE FOR CONTINUITY OF CARE.
--- NOTE | 2020-11-21 07:31 | NUR ---
RECEIVED ENDORSEMENT FROM COIN PURSE FRAMER, ASLEEP ON RIGHT SIDE LYING POSITION, ON HIGH FLOW METER OF OF 100%, FLOW RATE-40L/MIN, +15L/MIN VIA NON REBREATHER MASK, O2 SAT-90%. WITH ONGOING IV FLUID WITH 0.9% NS AT 60ML/HOUR INFUSING AT LEFT FOREARM, G22 IV CANNULA NOTED. SAFETY MEASURES IN PLACE AND CONTINUE MONITOR.
[2020-11-21 07:44] LABS: BASOPHILS % (AUTO) 0.2 % (0.0-2.0); HEMATOCRIT 41.6 % (36-52); HEMOGLOBIN 13.9 g/dL (12.0-18.0); LYMPHOCYTES # (AUTO) 0.4 K/uL (2.0-11.5); LYMPHOCYTES % (AUTO) 1.7 % (20.5-51.1); MEAN CORPUSCULAR HEMOGLOBIN 32 pg (27-31); MEAN CORPUSCULAR HGB CONC 33 g/dL (33-37); MEAN CORPUSCULAR VOLUME 94.1 fL (80-94); MONOCYTES # (AUTO) 0.8 K/uL (0.8-1.0); MONOCYTES % (AUTO) 3.7 % (1.7-9.3); NEUTROPHILS # (AUTO) 20.4 K/uL (1.8-7.7); NEUTROPHILS % (AUTO) 94.4 % (42.2-75.2); PLATELET COUNT (AUTO) 134 K/uL (140-450); RED BLOOD CELL COUNT(AUTO) 4.42 MIL/uL (4.20-6.10); RED CELL DISTRIBUTION WIDTH 13.2 % (11.6-13.7); WHITE BLOOD COUNT (AUTO) 21.6 K/uL (4.8-10.8)
[2020-11-21 07:57] LABS: ANION GAP 11.9 (8-16); CARBON DIOXIDE 28.9 mmol/L (21-32); CHLORIDE 105 mmol/L (98-107); CREATININE 1.1 mg/dL (0.6-1.3); GLUCOSE 136 mg/dL (74-106); POTASSIUM 4.8 mmol/L (3.5-5.1); SODIUM SERUM 141 mmol/L (136-145); UREA NITROGEN, BLOOD 25 mg/dL (7-18)
[2020-11-21 08:00] VITALS: BP 104/58
[2020-11-21] MEDS: ZINC SULF 220 MG CAP PO SCH (08:47)
[2020-11-21] MEDS: ASCORBIC ACID 500 MG TAB PO SCH (08:47)
[2020-11-21] MEDS: PANTOPRAZOLE 40 MG TABEC PO SCH (08:47)
--- NOTE | 2020-11-21 08:59 | NUR ---
FULLY AWAKE AND ALERT, BREAKFAST SERVED AND DUE MEDICATION GIVEN
--- NOTE | 2020-11-21 11:50 | NUR ---
FULLY AWAKE AND ALERT, STILL ON HIGH FLOW METER 100% 02SAT-91%, NOT IN DISTRESS NOTED.
[2020-11-21 12:00] VITALS: BP 103/49
--- NOTE | 2020-11-21 13:11 | NUR ---
AWAKE AND HAVING HIS LUNCH, STILL ON HIGH FLOW METER 100% FLOW RATE-40L/MIN, [id number]%
--- NOTE | 2020-11-21 15:48 | NUR ---
PATIENT IS DESATING AT 67-70%, TACHYPNEIC RR-38 BPM AND ON LABORED BREATHING NOTED, TACHYCARDIC-136 BPM, DR. CLARK/PULMO CONTACTED AND ORDERED TO PLACE ON BIPAP 10/01, FIO2-100%, RT WOOD INFORMED.
[2020-11-21 16:00] VITALS: BP 112/67
--- NOTE | 2020-11-21 16:02 | NUR ---
DR. BECERRIL CONTACTED TO UPDATE PATIENT STATUS AND APPARENTLY THE PATIENT ANXIOUS AND RESTLESS, ORDERED TO GIVE ATIVAN 1MG [id number] PRN, CARRIED OUT.
[2020-11-21] MEDS ORDERED: LORazepam 2 MG/ML VIAL IVP PRN (16:05)
--- NOTE | 2020-11-21 16:15 | NUR ---
ATIVAN 1MG IV ORDERED PRN GIVEN, HEALTH TEACHING PROVIDED, CONTINUE MONITOR, O2 SAT -85-86% ON BIPAP
--- NOTE | 2020-11-21 17:48 | NUR ---
ON RIGHT LYING POSITION, APPARENTLY CALMED AND EYES CLOSED, STILL LABORED BREATHING NOTED, O2SAT -88%
--- NOTE | 2020-11-21 18:38 | NUR ---
AWAKE ON RT SIDE LYING POSITION, FULLY AWAKE AND ALERT, STILL ON BIPAP, M2WAS-53-39% NOTED
--- NOTE | 2020-11-21 19:32 | NUR ---
ENDORSED TO MAIL SORTER AND DELIVERY FOR CONTINUITY OF CARE, STILL ON BIPAP, M7MDL-61%, NOT IN DISTRESS NOTED
--- NOTE | 2020-11-21 19:33 | NUR ---
RECEIVED BEDSIDE ENDORSEMENT FROM AM SHIFT RN. AOX4, ON BIPAP, FIO2 100%, O2 SAT 89%-90%, NO DISTRESS, SAFETY MEASURES IN PLACE, PLAN OF CARE DISCUSSED, CALL LIGHT WITHIN REACH.
[2020-11-21 20:00] VITALS: BP 142/80
--- NOTE | 2020-11-21 21:54 | NUR ---
HEPARIN 5000 U SQ GIVEN ORDERED, TOLERATED WELL, O2 SAT 86% HOB ELEVATED, RT CAME IN AND CHECK PT, RT FIXED THE BIPAP ON PT. NO SOB NOTED, NO DISTRESS, WILL CONTINUE TO MONITOR, CALL LIGHT WITHIN REACH.
[2020-11-22] VITALS (16 sets, daily range): BP systolic 54–142; BP diastolic 37–79
--- NOTE | 2020-11-22 | NUR ---
V/S TAKEN AND RECORDED, CONTINUE ON BIPAP, O2 SAT 86%, DENIES PAIN, NO DISTRESS, CALL LIGHT WITHIN REACH.
--- NOTE | 2020-11-22 02:00 | NUR ---
INSTRUCTED PT TO BREATH THROUGH THE NOSE AND AND EXHALE TO THE MOUTH, TRY TO BREATH SLOW, PT ON RT SIDE, RT ON BEDSIDE, O2 SAT 86%, CONTINUE TO MONITOR, CALL LIGHT WITHIN REACH.
--- NOTE | 2020-11-22 02:56 | NUR ---
O2 SAT 87%, ON BIPAP, CALL LIGHT WITHIN REACH.
--- NOTE | 2020-11-22 04:10 | NUR ---
ADJUSTED PTS BIPAP SETTINGS TO IPAP 22, EPAP 16, DUE TO LOW SATURATIONS AND THE PTS WORK OF BREATHING. PT TOLERATED CHANGES WELL AND SATURATION BEGAN TO IMPROVE. WILL CONTINUE TO MONITOR
--- NOTE | 2020-11-22 05:30 | NUR ---
O2 SAT 89%-90% ON PRONE POSITION, CALL LIGHT WITHIN REACH.
--- NOTE | 2020-11-22 07:20 | NUR ---
PT STABLE, NO DISTRESS, O2 SAT 90%, BEDSIDE ENDORSEMENT GIVEN TO AM SHIFT RN FOR CONTINUITY OF CARE.
--- NOTE | 2020-11-22 07:30 | NUR ---
REC'D BEDSIDE ENDORSEMENT FROM NIGHTSHIFT NURSE FOR CONTINUITY OF CARE.
[2020-11-22] MEDS: ZINC SULF 220 MG CAP PO SCH ×2 (08:24→08:50)
[2020-11-22] MEDS: ASCORBIC ACID 500 MG TAB PO SCH ×2 (08:24→08:50)
[2020-11-22] MEDS: PANTOPRAZOLE 40 MG TABEC PO SCH ×2 (08:25→08:50)
--- NOTE | 2020-11-22 08:50 | NUR ---
PATIENT UNABLE TO TOLERATE MEDS AT THE MOMENT, SPO2 80% DURING MED PASS ATTEMPT. RT AT BEDSIDE, RECOMMENDS INTUBATION DUE TO PATIENT EXTENSIVE WORK OF BREATHING. MD NOTIFIED. SAFETY MEASURES IN PLACE. WILL CONT TO MONITOR.
--- NOTE | 2020-11-22 09:02 | NUR ---
CONTACTED PATIENT SENIA , ADVSD OF RT/MD RECOMMENDATION TO INTUBATE. SHE ADVSD ME THAT SHE WILL DISCUSS W/ FAMILY AND THEN CALL ME BACK IN 10 MIN W/ DECISION.
--- NOTE | 2020-11-22 09:27 | NUR ---
REC'D PHONE CALL FROM PATIENT SISTER, ADVSD OF RT/MD RECOMMENDATION TO INTUBATE, ADVSD OF URGENT MATTER. SISTER VERBALIZED UNDERSTANDING. STATED SHE WANTED TO DISCUSS W/ REST OF PATIENT SIBLINGS (7 SISTERS, 5 BROTHERS) AND THEN SHE WILL CONTACT PATIENT SENIA TO LET US KNOW FAMILY DECISION.
--- NOTE | 2020-11-22 09:45 | NUR ---
RECEIVED CALL FROM PATIENT SENIA, GAVE THE OK TO PROCEED W/ INTUBATION. CALLED ER CHARGE NURSE TO PROCEED W/ INTUBATION.
[2020-11-22] MEDS ORDERED: PROPOFOL 1000 MG/100 ML PREMIX 100 ML IV ONE ×2 (10:01→14:20)
--- NOTE | 2020-11-22 10:01 | NUR ---
PATIENT IS INTUBATED; ER AND RT TEAM AT BEDSIDE.
--- NOTE | 2020-11-22 10:15 | NUR ---
HEIP S/P INTUBATION IN RM117 PT. WAS TNTUBATED ETT TO VENT AC24 TV [id number] 100%PEEP OF 10 O2 SAT 100%. PT HAS IV #18 ON RT AC INFUSSIING PROPOFOL AT. 10MCG.KG/MIN.AND # 22 ON LEFT WRIST INFUSSING NS AT 60 ML/HR.
--- NOTE | 2020-11-22 10:20 | NUR ---
22G IV INSERTED INTO RIGHT ANTECUBITAL, LINE PATENT AND PATIENT PLACED ON PROPOFOL BY ICU DIRECTOR. OG TUBE AND ACOSTA CATHETER PLACED.
--- NOTE | 2020-11-22 11:30 | NUR ---
PATIENT TRANSFERRED TO ICU ROOM 128A. BEDSIDE ENDORSEMENT GIVEN TO ICU NURSE FOR CONTINUITY OF CARE.
--- NOTE | 2020-11-22 11:40 | NUR ---
PT TRANSFER FROM RM 117 TO RM 128 WITH RT .
--- NOTE | 2020-11-22 11:50 | NUR ---
TRANS IN FROM MED SURG [id number] S/P INTUBATION.VIA BED ESCORTED BY RN AND RT.ON TELE BOX .SEDATED ON PROPOFOL DRIP @ 25MCG/KG/MIN.PT STILL AGITATED AND ATTEMPTED TO GET OUT OF BED REPOSITIONED AND MAINTAINED ON 30 DEGREES HOB TO FACILITATE EASY BREATHING AND PREVENT ASPIRATION.
[2020-11-22] MEDS ORDERED: MORPHINE SULFATE 50 MG in NACL 0.9% 45 ML IV PRN (12:00)
--- NOTE | 2020-11-22 13:00 | NUR ---
PT'S BP DROPPING 65/[address] BECERRIL AND MADE AWARE OF PT'S LOW BP W/ ORDER NOTED AND CARRIED OUT.BOLUS OF NSS 1.5L GIVEN. BUT TO NO AVAIL.PT'S BP STILL ON THE LOW SIDE.LEVOPHED STARTED @ 5 MCG/MIN. CONDITION MONITORED.
[2020-11-22] MEDS ORDERED: MORPHINE SULFATE 2 MG/ML SYR IVP PRN (13:25)
[2020-11-22] MEDS ORDERED: NACL 0.9% 1,000 ML IV SCH (13:30)
[2020-11-22] MEDS ORDERED: MIDAZOLAM MDV 100 MG in NACL 0.9% 80 ML IV PRN (13:35)
--- NOTE | 2020-11-22 15:54 | NUR ---
[id number] CLARK TO REPORT CRITICAL ABG MARIA LUISA. PER DR. CLARK NO CHANGES TO VENT SETTINGS.
[2020-11-22] MEDS: NOREPINEPHRINE 4 MG in DEXTROSE 5% 250 ML IV PRN ×2 (16:38→22:48)
--- NOTE | 2020-11-22 17:30 | NUR ---
PICC LINE RN CAME IN AND PICC LINE PLACEMENT ON THE RT UPPER ARM UNDER ASEPTIC TECHNIQUE DONE. PORTABLE CXR DONE. ALL NEEDS ATTENDED AND MET DURING THE SHIFT. PT'S SENIA CALLED UP AND CHANGE CODE STATUS TO DNR. PT'S CONDITION UNCHANGED. TO BE ENDORSED TO ETHANOL QUALITY LEADERCLOCK AND WATCH HANDS DIPPER.PT SEDATED ON VERSED AND LEVOPHED DRIP @ 10MCG/MIN. FOR CONTINUITY OF CARE.
--- NOTE | 2020-11-22 19:45 | NUR ---
RECIEVED ENDORSMENT FROM DAY SHIFT RN, PT SEDATED RASS -3, SUPINE IN BED, BED LOW AND HOB 30 DEGREES, ETT TO VENT ACPC FIO2 100% PEEP 10 RATE 24, OGT CLAMPED, PT NPO, SKIN WARM AND DRY TO TOUCH, SKIN INTACT, JACINTO PICC LOCKED, JACINTO PERIPHERAL IV 18 GAUGE RUNNING VERSED AND LEVOPHED, LW PERIPHERAL IV 20 GAUGE RUNNING NS, FC IN PLACE DRAINING VIA GRAVITY, PT SHOWING NO SIGNS OF ACUTE DISTRESS, BUE RESTRAINTS IN PLACE, SAFETY MEASURES IN PLACE, WILL CONTINUE WITH CURRENT POC
--- NOTE | 2020-11-22 20:20 | NUR ---
RECEIVED PT ON THE VENT FROM DAY SHIFT, INTUBATED WITH ETT SIZE 8.0 SECURED WITH ANCHOR FAST @ 23CM @ TEETH. VENTILATOR PLUGGED INTO THE RED OUTLET, AIRWAY PATENT, B/S DIMINISHED. AMBU BAG AT BESIDE, ALARM SET AUDIBLE. WILL CONTINUE TO MONITOR.
[2020-11-22] MEDS: NACL 0.9% 1,000 ML IV SCH (20:55)
[2020-11-23] VITALS (34 sets, daily range): BP systolic 62–144; BP diastolic 43–85
[2020-11-23] MEDS: NACL 0.9% 1,000 ML IV SCH ×3 (06:24→19:20)
[2020-11-23] MEDS: NOREPINEPHRINE 4 MG in DEXTROSE 5% 250 ML IV PRN ×2 (06:34→14:08)
[2020-11-23 06:43] LABS: ANION GAP 10.5 (8-16); CARBON DIOXIDE 26.4 mmol/L (21-32); CHLORIDE 108 mmol/L (98-107); CREATININE 0.9 mg/dL (0.6-1.3); GLUCOSE 111 mg/dL (74-106); POTASSIUM 3.9 mmol/L (3.5-5.1); SODIUM SERUM 141 mmol/L (136-145)
[2020-11-23 06:58] LABS: BASOPHILS # (AUTO) 0.1 K/uL (0.00-0.22); BASOPHILS % (AUTO) 0.6 % (0.0-2.0); EOSINOPHILS # (AUTO) 0.2 K/uL (0-0.4); EOSINOPHILS % (AUTO) 1.5 % (0.0-4.0); HEMATOCRIT 39.6 % (36-52); LYMPHOCYTES # (AUTO) 0.6 K/uL (2.0-11.5); LYMPHOCYTES % (AUTO) 3.9 % (20.5-51.1); MEAN CORPUSCULAR HEMOGLOBIN 32 pg (27-31); MEAN CORPUSCULAR HGB CONC 33 g/dL (33-37); MEAN CORPUSCULAR VOLUME 95.8 fL (80-94); MONOCYTES # (AUTO) 0.6 K/uL (0.8-1.0); MONOCYTES % (AUTO) 3.6 % (1.7-9.3); NEUTROPHILS # (AUTO) 14.9 K/uL (1.8-7.7); NEUTROPHILS % (AUTO) 90.4 % (42.2-75.2); PLATELET COUNT (AUTO) 161 K/uL (140-450); RED BLOOD CELL COUNT(AUTO) 4.13 MIL/uL (4.20-6.10); RED CELL DISTRIBUTION WIDTH 13.8 % (11.6-13.7); WHITE BLOOD COUNT (AUTO) 16.5 K/uL (4.8-10.8)
[2020-11-23 07:00] LABS: UREA NITROGEN, BLOOD 25 mg/dL (7-18)
--- NOTE | 2020-11-23 08:01 | NUR ---
ENDORSED TO DAY SHIFT RN FOR CONTINUITY OF CARE
--- NOTE | 2020-11-23 08:01 | NUR ---
RECEIVED WINDOW SIDE REPORT FROM LUMBER TRIMMER NURSE. PATIENT IN ISOLATION ROOM FOR COVID-19. PATIENT SUPINE IN BED, ETT TO VENT: ACPC 100% FIO2, RR 24, PEEP 10, LABORED BREATHING WITH USE OF ACCESSORY MUSCLE. G TUBE IN PLACE, RUNNING VITAL AF @ 10 ML/HR. ACOSTA IN PLACE, DRAINING TO GRAVITY. BRANDON SOFT WRIST RESTRAINTS IN PLACE. JACINTO 18G, R WRIST 20G, JACINTO PICC, CLEAN DRY INTACT. RUNNING: LEVOPHED @ 5 MCG/MIN, VERSED @ 1 MG/HR, NS @ 100 ML/HR. PSYCHIATRIC SECRETARY IN PLACE. SAFETY MEASURES IN PLACE.
[2020-11-23] MEDS: PANTOPRAZOLE 40 MG TABEC PO SCH (08:21)
[2020-11-23] MEDS: ASCORBIC ACID 500 MG TAB PO SCH (08:21)
[2020-11-23] MEDS: ZINC SULF 220 MG CAP PO SCH (08:22)
--- NOTE | 2020-11-23 08:25 | NUR ---
ADMINISTERED SCHEDULED MEDS PER MD ORDER. MED EDUCATION PROVIDED, REINFORCEMENT NEEDED. G TUBE RESIDUAL, 5 ML, FLUSHED BEFORE AND AFTER MEDS. MORNING HYGIENE PROVIDED: HCG BATH, ORAL CARE, CATHETER CARE. CHANGED ALL DIRTY LINEN, PATIENT REPOSITIONED AND OFFLOADED PRESSURE WITH PILLOWS. ACTIVITY TOLERATED WELL, NO SIGNS OF ACUTE DISTRESS NOTED. MICA SPLITTER IN PLACE, SAFETY MEASURES IN PLACE.
[2020-11-23] MEDS ORDERED: PROPOFOL 1000 MG/100 ML PREMIX 100 ML IV PRN ×2 (10:20→10:45)
[2020-11-23] MEDS ORDERED: PROPOFOL 200 MG/20 ML VIAL IV ONE (10:25)
[2020-11-23] MEDS ORDERED: PROPOFOL 1000 MG/100 ML PREMIX 100 ML IV ONE (10:47)
[2020-11-23] MEDS: DILTIAZEM 25 MG/5 ML VIAL IVP SCH ×3 (11:25→12:35)
[2020-11-23] MEDS ORDERED: fentaNYL citrate 1 MG in NACL 0.9% 80 ML IV PRN (14:30)
[2020-11-23] MEDS ORDERED: fentaNYL citrate - 50mL vial 2.5 MG in NACL 0.9% 200 ML IV PRN (14:35)
--- NOTE | 2020-11-23 15:20 | NUR ---
11/23/20 RD FOLLOW UP COMPLETED PLEASE REFER TO NUTRITION ASSESSMENT UNDER CARE ACTIVITY FOR ESTIMATED NUTRITIONAL NEEDS. 1. RECOMMEND INCREASING GOAL RATE OF VITAL AF 1.2 @ 65 ML/HR X 24 HR -PROVIDES 1872 KCAL AND 117 GM OF PROTEIN 2. RECOMMEND FREE WATER FLUSH OF 100 ML Q4H 3. CONTINUE VITAMIN C SUPPLEMENTATION 4. RD TO FOLLOW-UP 2-3 DAYS, HIGH RISK SAMUEL MEHTA, RD
[2020-11-23] MEDS ORDERED: PHENYLEPHRINE 20 MG in NACL 0.9% 250 ML IV PRN (16:05)
[2020-11-23] MEDS ORDERED: PHENYLEPHRINE 10 MG in NACL 0.9% 250 ML IV PRN (16:16)
[2020-11-23] MEDS: NOREPINEPHRINE 8 MG in DEXTROSE 5% 250 ML IV PRN ×2 (17:59→21:32)
--- NOTE | 2020-11-23 19:22 | NUR ---
PATIENT ENDORSED TO COLORING MACHINE OPERATOR NURSE FOR CONTINUITY OF CARE. PATIENT STABLE AT THIS TIME.
--- NOTE | 2020-11-23 19:37 | NUR ---
RECEIVED PT FROM DAY SHIFT ON THE VENT SETTING PC22, 24, 95% FIO2, PEEP 10. PT INTUBATED WITH SIZE 8 ETT SECURED WITH ANCHOR FAST @ 23CM AT TEETH. AIRWAY PATENT, NO RESPIRATORY DISTRESS NOTED. VENTILATOR PLUGGED INTO THE RED OUTLET. ALARMS SET AUDIBLE, AMBUG AT BEDSIDE. WILL CONTINUE TO MONITOR .
--- NOTE | 2020-11-23 19:45 | NUR ---
RECEIVED REPORT FROM DAY NURSE; PT SEDATED ON PROPOFOL VERSED AND FENTANYL DRIPS, SLUGGISH REACTIVE PUPILS NOTED, NO GAG REFLEX NOTED. PT HAS FLACCID TONE. SR/ST ON MONITOR 90S-100S. +2-3 GENERALIZED EDEMA NOTED. PALPABLE PERIPHERAL PULSES INTACT. ETT TO VENT ON 95% FIO2 R 24 PEEP [address] PRESS[address]OL. OGT IN PLACE, CLAMPED @ THIS TIME. ACOSTA CATH IN PLACE DARK JASMINA URINE NOTED. SKIN INTACT. R UPPER ARM PICC LINE NOTED, PATENT. R AC 18 G AND L FA 20 G NOTED. LEVOPHED RUNNING TO KEEP SBP>90. IVF INFUSING. BED LOCKED IN LOWEST POSITION. SAFETY PRECAUTIONS IN PLACE. WILL CONTINUE TO OBSERVE.
[2020-11-23] MEDS ORDERED: PHENYLEPHRINE 10 MG/ML VIAL ONE (19:54)
[2020-11-23] MEDS ORDERED: CRUSHER, PILL MC ONE (20:42)
[2020-11-23] MEDS: PHENYLEPHRINE 40 MG in NACL 0.9% 250 ML IV PRN (21:30)
[2020-11-23] MEDS: ENOXAPARIN 80 MG/0.8 ML SYR SUBQ SCH (21:32)
--- NOTE | 2020-11-23 22:45 | NUR ---
SPOKE WITH DAUGHTER TERE; PT CONDITION UPDATED TO FAMILY. PHONE PLACED NEAR PT HEAD OF BED, PER FAMILY WISHES. NO S/S OF DISTRESS NOTED. WILL CONTINUE TO OBSERVE.
[2020-11-24] VITALS (29 sets, daily range): BP systolic 62–115; BP diastolic 24–79
--- NOTE | 2020-11-24 00:15 | NUR ---
SENIA UPDATED REGARDING PT CONDITION. NO ACUTE DISTRESS WILL CONTINUE TO OBSERVE.
[2020-11-24] MEDS ORDERED: METOPROLOL 5 MG/5 ML VIAL IVP PRN (03:40)
[2020-11-24] MEDS ORDERED: AMIODARONE 450 MG in DEXTROSE 5% 250 ML IV SCH (03:40)
[2020-11-24] MEDS ORDERED: AMIODARONE 150 MG in DEXTROSE 5% 100 ML IV SCH (03:40)
[2020-11-24] MEDS ORDERED: NACL 0.9% 1,000 ML IV SCH (03:40)
--- NOTE | 2020-11-24 03:41 | NUR ---
DR STARK PAGED REGARDING RAPID AFIB 160S SUSTAINED. MD ORDERED AMIODARONE BOLUS + DRIP PER PROTOCOL, 1 L BOLUS, AND METOPROLOL IVP ORDERED FOR HR>120. WILL CONTINUE TO OBSERVE.
[2020-11-24] MEDS ORDERED: AMIODARONE 150 MG/3 ML VIAL IV ONE (03:45)
[2020-11-24] MEDS ORDERED: AMIODARONE 450 MG/9 ML VIAL IV ONE (03:45)
[2020-11-24] MEDS ORDERED: PHENYLEPHRINE 10 MG/ML VIAL ONE (03:45)
[2020-11-24] MEDS: PHENYLEPHRINE 40 MG in NACL 0.9% 250 ML IV PRN ×5 (04:00→22:58)
--- NOTE | 2020-11-24 05:00 | NUR ---
DR CHRISTOPH AUSTIN; INFORMED MD ABOUT HYPOTENSION; VASOPRESSIN ORDERED. WILL CONTINUE TO OBSERVE
[2020-11-24] MEDS: NACL 0.9% 1,000 ML IV SCH ×2 (05:20→17:15)
[2020-11-24 05:57] LABS: BASOPHILS % (AUTO) 0.1 % (0.0-2.0); EOSINOPHILS % (AUTO) 0.1 % (0.0-4.0); HEMATOCRIT 42.9 % (36-52); LYMPHOCYTES # (AUTO) 0.4 K/uL (2.0-11.5); LYMPHOCYTES % (AUTO) 3.2 % (20.5-51.1); MEAN CORPUSCULAR HEMOGLOBIN 32 pg (27-31); MEAN CORPUSCULAR HGB CONC 30 g/dL (33-37); MEAN CORPUSCULAR VOLUME 104.6 fL (80-94); MONOCYTES # (AUTO) 0.8 K/uL (0.8-1.0); MONOCYTES % (AUTO) 6.3 % (1.7-9.3); NEUTROPHILS % (AUTO) 90.3 % (42.2-75.2); PLATELET COUNT (AUTO) 166 K/uL (140-450); RED CELL DISTRIBUTION WIDTH 15.4 % (11.6-13.7); WHITE BLOOD COUNT (AUTO) 13.3 K/uL (4.8-10.8)
[2020-11-24 06:35] LABS: ANION GAP 10.5 (8-16); CARBON DIOXIDE 28.9 mmol/L (21-32); CHLORIDE 106 mmol/L (98-107); CREATININE 3.1 mg/dL (0.6-1.3); GLUCOSE 210 mg/dL (74-106); SODIUM SERUM 139 mmol/L (136-145); UREA NITROGEN, BLOOD 42 mg/dL (7-18)
--- NOTE | 2020-11-24 07:05 | NUR ---
RECEIVED PT FROM RN GORDY ON UNSTABLE CONDITION.ON MAX DOSE OF LEVOPHED AND NEOSYNEPHRINE,ON FENTANYL DRIP. ORALLY INTUBATED TO VENTILATOR O2 SAT 92%.CONDITION GUARDED. PT'S CODE STATUS DNR.
[2020-11-24] MEDS: NOREPINEPHRINE 8 MG in DEXTROSE 5% 250 ML IV PRN ×4 (07:34→22:57)
[2020-11-24 08:18] LABS: POTASSIUM 6.4 mmol/L (3.5-5.1)
[2020-11-24] MEDS ORDERED: NACL 0.9% 1,000 ML IV ONE (08:45)
[2020-11-24] MEDS ORDERED: CALCIUM GLUCONATE 10% 1,000 MG in NACL 0.9% 50 ML IV ONE (08:45)
[2020-11-24] MEDS ORDERED: SODIUM ZIRCONIUM CYCLOSILICATE 10 GM POWD.PACK PO ONE (08:45)
[2020-11-24] MEDS: PANTOPRAZOLE 40 MG TABEC PO SCH (09:01)
[2020-11-24] MEDS: ASCORBIC ACID 500 MG TAB PO SCH (09:01)
[2020-11-24] MEDS: ZINC SULF 220 MG CAP PO SCH (09:02)
[2020-11-24] MEDS: ENOXAPARIN 80 MG/0.8 ML SYR SUBQ SCH (09:03)
--- NOTE | 2020-11-24 09:26 | NUR ---
[facility] CALLED FOR ROUTINE EEG, EEG TO BE DONE AROUND 12.
--- NOTE | 2020-11-24 09:32 | NUR ---
INSPIRATORY PRESSURE INCREASED TO 26 DUE TO LOW VT. WILL CONTINUE TO MONITURED.
--- NOTE | 2020-11-24 11:00 | NUR ---
PT'S BP ON THE LOW SIDE.VASOPRESSIN STARTED @ 0.03 UNITS/MIN. STILL PT'S BP ON THE LOW SIDE.
[2020-11-24] MEDS: VASOPRESSIN 20 UNITS in NACL 0.9% 250 ML IV SCH ×5 (11:07→23:00)
--- NOTE | 2020-11-24 11:15 | NUR ---
SEEN AND EXAMINED BY DR DUENAS AND EDIL CATHETER PLACEMENT DONE UNDER ASEPTIC TECHNIQUE. DRESSING APPLIED AFTER.
--- NOTE | 2020-11-24 13:04 | NUR ---
SPOKE TO DR BECERRIL REGARDING PT BP 77/35, MAXED ON 3 PRESSORS, LEVOPHED, NEOSYNEPHRINE AND VASOPRESSIN, PER DR GOULD TO STOP AMIODARONE FOR NOW, NO NEW ORDERS AND CONSULT WITH CARDIO LATER. WILL CONTINUE TO MONITOR.
--- NOTE | 2020-11-24 13:30 | NUR ---
DUE TO A DROP IN BLOOD PRESSURE, PRESSURE WAS DECREASED TO 24, AND PEEP TO 8. WE WILL CONTINUE MONITORING.
--- NOTE | 2020-11-24 18:21 | NUR ---
PT'S CONDITION CRITICALLY UNSTABLE W/ 3 PRESSORS BUT STILL PT'S BP ON THE LOW SIDE. AND O2 SAT OF PT IS ON 70-89'S. 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
--- NOTE | 2020-11-24 19:45 | NUR ---
RECEIVED REPORT FROM DAY NURSE; PT OBTUNDED; SLUGGISH REACTIVE PUPILS NOTED, NO GAG REFLEX NOTED. PT HAS FLACCID TONE. SR/SB 70-50S. +2-3 GENERALIZED EDEMA NOTED. THREADY PERIPHERAL PULSES INTACT. ETT TO VENT ON 95% FIO2 R 24 PEEP 10 PRESSURE CONTROL. OGT IN PLACE, CLAMPED @ THIS TIME. ACOSTA CATH IN PLACE DARK JASMINA URINE NOTED. SKIN INTACT. R UPPER ARM PICC LINE NOTED, PATENT. R AC 18 G AND L FA 20 G NOTED. LEVOPHED NEOSYNEPHRINE, VASOPRESSIN RUNNING, IVF INFUSING. BED LOCKED IN LOWEST POSITION. SAFETY PRECAUTIONS IN PLACE. WILL CONTINUE TO OBSERVE.
[2020-11-24] MEDS: DOPamine 400 MG/D5W PREMIX 250 ML IV PRN (21:45)
[2020-11-24] MEDS ORDERED: ATROPINE 0.4 MG/ML VIAL IVP PRN (21:45)
[2020-11-24] MEDS ORDERED: DOPamine 400 MG/D5W PREMIX 250 ML IV ONE (21:51)
--- NOTE | 2020-11-24 22:15 | NUR ---
DOPAMINE DRIP STARTED PER DR JAIN ORDERS; ATROPINE FOR HR<40 ORDERED, WILL CONTINUE TO OBSERVE.
[2020-11-25] VITALS: BP 124/68
[2020-11-25 01:00] VITALS: BP 112/73
[2020-11-25] MEDS: NACL 0.9% 1,000 ML IV SCH (01:20)
[2020-11-25 02:00] VITALS: BP 78/52
--- NOTE | 2020-11-25 02:30 | NUR ---
DOPAMINE MAXED OUT @ THIS TIME, HR 57 OS SAT 97, BP 70/42. MULTIPLE CALLS TO [facility], NO ANSWER; MESSAGE LEFT TO [facility] PH [phone]
[2020-11-25] MEDS ORDERED: DOPamine 400 MG/D5W PREMIX 250 ML IV ONE (02:33)
[2020-11-25] MEDS: DOPamine 400 MG/D5W PREMIX 250 ML IV PRN (02:35)
[2020-11-25] MEDS: PHENYLEPHRINE 40 MG in NACL 0.9% 250 ML IV PRN (02:46)
[2020-11-25 03:00] VITALS: BP 134/38
[2020-11-25] MEDS ORDERED: ATROPINE 1 MG/10 ML SYR IVP ONE (03:17)
--- NOTE | 2020-11-25 03:18 | NUR ---
GAVE ATROPIN 0.4MG FOR HR 42
--- NOTE | 2020-11-25 04:29 | NUR ---
SENIA; SIGNIFICANT OTHER CALLED TO UPDATE PT CONDITION. BP LOW SBP 40-50S, HR 20S. TO COME SEE PT OUTSIDE VIA PT WINDOW. [id number]: DR BIGGS ER PHYSICIAN @ BEDSIDE. PT @ 428.
--- NOTE | 2020-11-25 05:11 | NUR ---
PHONE CALL TO [facility],SPOKE WITH JAYDEN, QUESTIONS ANSWERED,BODY RELEASED REF #[id number]
--- NOTE | 2020-11-25 05:30 | NUR ---
MEDICAL IMAGING DIRECTOR MARLIN CARRIZALES CALLED TO CLEAR PT [facility].
--- NOTE | 2020-11-25 05:50 | NUR ---
BELONGINGS FROM PT SENT WITH [facility], RECORD OF SIGNED. WILL CONTINUE TO OBSERVE.
== END 2020-11-25 05:00 | DRG 871 ==
LOC: MED 12:16 → MTU 17:27 → MMU 11-22 12:00
PROVIDERS: ADMIT Family Medicine; ATTEND Family Medicine
PROC: XW033E5 Introduction of Remdesivir Anti-infective into Peripheral Vein, Percutaneous Approach, New Technology Group 5 (ICD-10-PCS; 2020-11-11)
PROC: XW13325 Transfusion of Convalescent Plasma (Nonautologous) into Peripheral Vein, Percutaneous Approach, New Technology Group 5 (ICD-10-PCS; 2020-11-15)
PROC: 5A09457 Assistance with Respiratory Ventilation, 24-96 Consecutive Hours, Continuous Positive Airway Pressure (ICD-10-PCS; 2020-11-21)
PROC: 5A1945Z Respiratory Ventilation, 24-96 Consecutive Hours (ICD-10-PCS; principal; 2020-11-22)
PROC: 0BH17EZ Insertion of Endotracheal Airway into Trachea, Via Natural or Artificial Opening (ICD-10-PCS; 2020-11-22)
PROC: 02HV33Z Insertion of Infusion Device into Superior Vena Cava, Percutaneous Approach (ICD-10-PCS; 2020-11-22)
PROC: 4A00X4Z Measurement of Central Nervous Electrical Activity, External Approach (ICD-10-PCS; 2020-11-24)
PROC: 06HY33Z Insertion of Infusion Device into Lower Vein, Percutaneous Approach (ICD-10-PCS; 2020-11-24)
PROC: B54BZZA Ultrasonography of Right Lower Extremity Veins, Guidance (ICD-10-PCS; 2020-11-24)
DX: A41.9 Sepsis, unspecified organism (principal); U07.1 COVID-19; J12.82 Pneumonia due to coronavirus disease 2019; E43 Unspecified severe protein-calorie malnutrition; J96.01 Acute respiratory failure with hypoxia; N17.0 Acute kidney failure with tubular necrosis; R65.21 Severe sepsis with septic shock; J44.0 Chronic obstructive pulmonary disease with (acute) lower respiratory infection; D68.59 Other primary thrombophilia; Z66 Do not resuscitate; D69.6 Thrombocytopenia, unspecified; E87.5 Hyperkalemia; Z79.899 Other long term (current) drug therapy; Z68.26 Body mass index [BMI] 26.0-26.9, adult
CPT/HCPCS: 36415; 36600; 71045; 71275; 80048; 80053; 80305; 81001; 82150; 82550; 82728; 82803; 82948; 83036; 83605; 83615; 83690; 83735; 83880; 84100; 84436; 84439; 84443; 84479; 84484; 85025; 85379; 85384; 85610; 85651; 85730; 86140; 86886; 86900; 86901; 87040; 87081; 93005; 94002; 94003; 94660; 96365; 96367; 96368; 96375; 97110; 97112; 97116; 97161-GP; 97530; 99285; J0282; J0456; J0461; J0610; J0696; J1100; J1265; J1644; J1650; J2060; J2250; J2270; J2370; J2704; J3010; J3490; J7030; J7060; J7512; J7613; P9017; Q9967; U0003